=== PATIENT | male | born 1995 ===

== ENCOUNTER 2020-06-20 11:53 | Emergency (ER) | payer OTHER, SELFPAY ==
--- NOTE | ~2020-06-20 | XR_ITS ---
EXAMINATION: XR KNEE, RIGHT CLINICAL INFORMATION: Pain, trauma. COMPARISON: November 11, 2011 TECHNIQUE: Four views of the right knee. FINDINGS: There is no evidence of acute fracture or dislocation of the right knee. Right knee joint spaces are maintained. There is question of a small right knee effusion versus edematous change within the planes. Sequela of previous [place]-Schlatter's disease seen. XR/XR knee RT 4V IMPRESSION: No significant acute abnormality of the right knee.
[2020-06-20 12:00] VITALS: BP 127/80; PULSE 76; RESP 18; TEMP 36.4; O2SAT 96; BMI 28.5
--- NOTE | 2020-06-20 12:06 | ED_ITS ---
HPI - Extremity Problem General Chief complaint: Extremity Injury, Lower Stated complaint: knee injury Time Seen by Provider: 06/20/20 12:00 Source: patient and family Mode of arrival: ambulatory Limitations: no limitations History of Present Illness HPI Narrative: 25 yo male here with right knee pain s/p injury 2 days ago. Patient reports he struck his right thigh on a piece of furniture 2 days ago and since then he has had pain, and stiffness in the right knee. No Swelling, erythema, warmth, fevers, chills. Pain is not worsened with weight-bearing. He does have more pain in the morning when he wakes up and stretches and moves the extremity. No previous injury Related Data Allergies Allergy/AdvReac Type Severity Reaction Status Date / Time No Known Allergies Allergy Verified 06/20/20 12:04 [No Known Allergies*] Review of Systems Review of Systems: Yes all other systems are reviewed and are negative Constitutional: Constitutional: Reports no additional constitutional complaints, Denies body ache(s), Denies chills, Denies fever(s), Denies headache(s) and Denies weakness Eyes: Eyes: Reports no additional eye complaints and Denies change in vision ENT: Reports system reviewed and no additional complaints, except as documented, Denies dizziness, Denies headache(s), Denies nasal congestion, Denies nasal discharge and Denies neck pain Cardiovascular: Cardiovascular: Reports no additional cardiovascular complaints, Denies chest pain, Denies leg edema and Denies dyspnea Respiratory: Respiratory: Reports no additional respiratory complaints, Denies cough and Denies dyspnea Gastrointestinal: Gastrointestinal: Reports no additional gastrointestinal complaints, Denies abdominal pain, Denies diarrhea, Denies nausea and Denies vomiting Genitourinary: Genitourinary: Denies urinary incontinence Musculoskeletal: Musculoskeletal: Reports no additional musculoskeletal complaints, Denies back pain, Reports arthralgias, Denies joint swelling, Denies limited range of motion, Denies neck pain, Denies numbness and Denies tingling Integumentary/Breasts: Skin/Breast: Reports system reviewed and no additional complaints, except as docu and Denies rash Neurologic: Reports system reviewed and no additional complaints, except as documented, Denies Abnormal speech present, Denies dizziness, Denies headache(s), Denies numbness, Denies tingling and Denies weakness PMF Past Medical History Attestation statement: The following information was validated with the patient. Source: old records reviewed and nursing notes reviewed Medical History Asthma Social History Social History Advance Directives: No Advance Directives Information Provided: No Physical Exam Vital Signs: Vital Signs: Last Vital Signs Temp 97.5 F 06/20/20 12:00 Pulse 76 06/20/20 12:00 Resp 18 06/20/20 12:00 BP 127/80 06/20/20 12:00 Pulse Ox 96 06/20/20 12:00 Body Mass Index 28.5 Const: General: cooperative, healthy appearing, comfortable and no acute distress Orientation/consciousness: patient oriented x3 Limitations: no limitations HENMT: Head: Yes normal to inspection Ears: hearing grossly normal bilaterally General nose exam: Normal external nose present Face and sinus: Yes normal facial exam Mouth: Normal oral and palatal mucosa present Throat: Yes posterior oropharynx normal Eyes: General: appearance normal, both eyes and all related structures Pupils: Equal, round and reactive pupils present Neck: Neck: Yes normal visual inspection Chest: Chest palpation & inspection: normal inspection of the chest Resp: Effort & Inspection: normal respiratory effort Auscultation: clear to auscultation bilaterally Cardio: Rate: regular rate Rhythm: regular rhythm Peripheral pulses: Peripheral pulses 2+ throughout GI: Inspection: Yes normal to inspection Palpation (GI): Soft to palpation and nontender Auscultation: normal bowel sounds Back/Spine/Pelvis: Thoracic/Lumbar Spine: thoracic and lumbar spine normal to inspection Skin: General skin exam: no rashes or lesions noted Neuro: General: patient oriented x3, no focal motor deficits and normal sensation to monofilament Cranial nerves: Yes Equal, round and reactive pupils present Cognition (Neuro): normal cognition Speech: No Abnormal speech present Gait exam (Neuro): Normal gait present Motor exam (neuro): 5/5 motor strength present throughout Extrem: Other: Tenderness over the lateral knee. There is no ecchymosis, erythema, swelling. Patient has full range of motion of the joint. There is no ligamental laxity. No tenderness, swelling or ecchymosis noted over the distal thigh which is where the patient reports his initial injury. General: Yes normal to inspection Course Course Course Narrative: 25-year-old male here with right knee pain status post injury 2 days ago. Will check imaging. 1300-X-ray shows no acute bony abnormality. Likely contusion. Reviewed findings with the patient. Placed in a Altaf wrapping think crutches for ambulation. Recommended follow-up with his primary care in 5-7 days if no improvement in symptoms. Reviewed worrisome signs and symptoms of when to return to the emergency department. Comfortable discharge home. Procedures Procedure Narrative Procedure Narrative: altaf wrap right knee, crutches w/teaching MDM - Extremity (Nontraumatic) MDM Narrative Medical decision making narrative: Contusion versus strain versus sprain Imaging Data kne x-ray: Attestation: I personally reviewed and interpreted this imaging study as follows: Radiologist's impression: [address] [address]WFez ReportSigned Patient: Keny MoonMR#: [id number]: 1995Acct:[id number]/Sex: 25 / MADM Date: 06/20/20Loc: HO.EDAttending Dr: Ordering Physician: MATTEO GROVES NP Date of Service: 06/20/20 Procedure(s): XR knee RT 4V Accession Number(s): [id number] cc: MATTEO GROVES NP~ EXAMINATION: XR KNEE, RIGHT CLINICAL INFORMATION: Pain, trauma. COMPARISON: November 11, 2011 TECHNIQUE: Four views of the right knee. FINDINGS: There is no evidence of acute fracture or dislocation of the right knee. Right knee joint spaces are maintained. There is question of a small right knee effusion versus edematous change within the planes. Sequela of previous [place]-Schlatter's disease seen. XR/XR knee RT 4V IMPRESSION: No significant acute abnormality of the right knee. Discharge Plan Discharge Clinical Impression: Contusion Qualifiers: Encounter type: initial encounter Contusion area: knee Laterality: right Qualified Code(s): S80.01XA - Contusion of right knee, initial encounter Patient Disposition: Home, Self-Care Instructions: Contusion in Adults (ED) Additional Instructions: Rest, elevation Altaf wrap to the knee for comfort with limited weight-bearing Motrin or Tylenol for pain Ice 20 minutes on, 20 minutes off Follow-up with primary care doctor in 5 days if no improvement pain Referrals: Physician,Unknown [Primary Care Provider] - 2 days Interventions: ED Discharge Assessment Last Done: 06/20/20 13:10 Discharge Date/Time: 06/20/20 13:10
== END 2020-06-20 13:10 | disposition home or self-care (01) ==
PROVIDERS: Emergency Provider Emergency Medicine
DX: S80.01XA Contusion of right knee, initial encounter (principal); W22.03XA Walked into furniture, initial encounter; Y93.9 Activity, unspecified; Y92.019 Unspecified place in single-family (private) house as the place of occurrence of the external cause; Y99.9 Unspecified external cause status
CPT/HCPCS: 73564; 99283

== ENCOUNTER → 2020-07-02 11:56 | Outpatient (BNVA) | payer OTHER, SELFPAY | PROVIDERS: Visit Provider Physician Assistant | DX: S83.519A Sprain of anterior cruciate ligament of unspecified knee, initial encounter (principal) | CPT/HCPCS: 99202 ==

== ENCOUNTER → 2020-07-09 10:20 | Outpatient (BNVA) | payer OTHER, SELFPAY | PROVIDERS: Visit Provider Physician Assistant ==

== ENCOUNTER 2023-03-13 17:59 | Emergency (ER) | payer OTHER, SELFPAY ==
--- NOTE | 2023-03-13 | ECG_ITS ---
Test Reason : chest pain Blood Pressure : / mmHG Vent. Rate : 083 BPM Atrial Rate : 083 BPM P-R Int : 106 ms QRS Dur : 094 ms QT Int : 364 ms P-R-T Axes : 063 052 024 degrees QTc Int : 427 ms Sinus rhythm with short MT Otherwise normal ECG No previous ECGs available Referred By: Generic ED Physician Electronically Signed By:Agapito Berry
--- NOTE | ~2023-03-13 | XR_ITS ---
EXAMINATION: XR CHEST CLINICAL INFORMATION: Question asthma exacerbation COMPARISON: Chest radiograph from 02/18/2018 TECHNIQUE: Frontal view of the chest was obtained. FINDINGS: Slight left basilar atelectasis. No pneumothorax. Trachea is midline. Cardiac mediastinal silhouette is not enlarged. No large pleural effusion. Osseous structures are intact. Soft tissues are unremarkable. XR/XR chest 1V IMPRESSION: Slight left basilar atelectasis.
[2023-03-13 18:01] VITALS: BP 127/78; PULSE 83; RESP 18; TEMP 36.4; O2SAT 95; BMI 31.2
[2023-03-13 18:32] VITALS: BP 139/87; PULSE 86; RESP 16; O2SAT 96
--- NOTE | 2023-03-13 18:33 | ED.GENADULT ---
HPI - General Adult General Chief complaint: General Medical Stated complaint: asthma/hard time breathing Time Seen by Provider: 03/13/23 18:32 Source: patient, RN notes reviewed and old records reviewed Mode of arrival: ambulatory Limitations: no limitations History of Present Illness HPI narrative: 28-year-old male presents for evaluation of chest tightness and shortness of breath. Patient reports a history of asthma. Next he reports his symptoms started 4 days ago pain He also reports nasal congestion and ?sinus infection. ? Denies any fevers, chills. He has been using his inhalers at home without any improvement He rates his discomfort as mild, 5/10 Related Data Home Medications Medication Instructions Recorded Confirmed albuterol sulfate 2 mg tablet 2 mg PO Q8H 07/02/20 albuterol sulfate 90 mcg/actuation 1 inh inhalation Q4H 07/02/20 breath activated powder inhaler,sensor (Proair Digihaler) cholecalciferol (vitamin D3) 10 10 mcg PO DAILY 07/02/20 mcg (400 unit) capsule loratadine 10 mg capsule 10 mg PO DAILY 07/02/20 montelukast 10 mg tablet 10 mg PO DAILY 07/02/20 omeprazole 20 mg capsule,delayed 20 mg PO DAILY 07/02/20 release Previous Rx's Medication Instructions Recorded azithromycin 250 mg tablet See Rx Instructions PO .COMPLEX #6 03/13/23 tabs prednisone 20 mg tablet 40 mg (2 x 20 mg) PO DAILY #10 tabs 03/13/23 Allergies Allergy/AdvReac Type Severity Reaction Status Date / Time No Known Allergies Allergy Verified 03/13/23 18:01 [No Known Allergies*] Review of Systems Constitutional: Constitutional: Denies chills, Denies fever(s) and Reports headache(s) ENT: Reports headache(s) Cardiovascular: Cardiovascular: Denies chest pain and Reports dyspnea Respiratory: Respiratory: Reports chest congestion, Reports cough, Reports dyspnea and Reports wheezing Gastrointestinal: Gastrointestinal: Denies abdominal pain Neurologic: Reports headache(s) Allergic/Immunologic: Allergic/Immunologic: Reports wheezing PMFSH Past Medical History Medical History Asthma Social History Social History (Updated 07/02/20 @ 12:31 by Kathleen Salgado CMA) Advance Directives: No Advance Directives Information Provided: No Current occupational status: disabled Physical Exam ED Vital Signs: Vital Signs - 24 hr 03/13/23 18:01 03/13/23 18:32 Temperature 97.6 F Pulse Rate 83 86 Respiratory Rate 18 16 Blood Pressure 127/78 139/87 Pulse Oximetry 95 96 Oxygen Delivery Method Room Air Room Air BMI result Body Mass Index 31.2 Const General: healthy appearing, comfortable, no acute distress, alert and awake Nutritional Appearance: well nourished Orientation/consciousness: patient oriented x3 HENMT Head: Yes normocephalic and Yes atraumatic Throat: Yes posterior oropharynx normal Eyes Eyelids: Yes eyelids normal Conjunctivae: conjunctivae normal Sclerae: sclerae normal Corneas: corneas normal Pupils: Equal, round and reactive pupils present EOM: EOMs intact bilaterally Neck Neck: Yes full ROM Resp Other: Slightly diminished breath sounds throughout but otherwise clear to auscultation Effort & Inspection: normal respiratory effort, able to speak in complete sentences and not labored GI Inspection: No distended Palpation (GI): Soft to palpation, not firm, nontender, no guarding and not rigid Skin General skin exam: elasticity normal Neuro General: patient oriented x3 Cranial nerves: Yes Equal, round and reactive pupils present and Yes Bilaterally intact EOM present Cognition (Neuro): normal cognition Extrem Other: Moving all extremities well without any obvious deformities Medical Decision Making Medical Decision Making MDM Narrative: 28-year-old male presents for evaluation of chest tightness, shortness of breath. He has a history of asthma. He has no wheezing on exam. He also reports flu-like symptoms with sinus congestion. Will get a viral swab, chest x-ray, EKG. Patient most likely has a viral induced asthma exacerbation Differential Diagnosis Differential Diagnoses: The differential diagnosis associated with the presentation includes Asthma exacerbation Upper respiratory infection Viral syndrome Sinusitis Bronchitis Lab Data Labs: Lab Results 03/13/23 Range/Units 18:19 Influenza Type A (PCR) NEGATIVE (Negative) Influenza Type B (PCR) NEGATIVE (Negative) RSV RNA Qual (PCR) NEGATIVE (Negative) SARS-CoV-2 RNA (RT-PCR) NEGATIVE (Negative) Independent Interpretation I performed an independent interpretation of an: EKG (Sinus rhythm with short VT. No ectopy or arrhythmia) and Plain X-Ray (No infiltrates) Radiology Impression Discussion of test interpretation with radiology: I have reviewed the radiologist's reading. (Slight left basilar atelectasis) Discharge Plan Discharge Clinical Impression: Acute asthma exacerbation Patient Disposition: Home, Self-Care Instructions: Asthma (ED) Additional Instructions: Your workup in the emergency room today was reassuring. Use prednisone 40 mg daily for the next 5 days Continue to use your inhalers as prescribed You may use Motrin/Tylenol for pain Follow-up with your primary doctor Prescriptions: New azithromycin 250 mg tablet See Rx Instructions .ROUTE .COMPLEX Qty: 6 0RF Rx Instructions: For 250 mg dose pack: take 500 mg today (day 1), then 250 mg for 4 days (days 2-5) prednisone 20 mg tablet 40 mg PO DAILY Qty: 10 0RF
--- NOTE | 2023-03-13 18:33 | PC.NURSE ---
Patient brought back from waiting room, respirations even and unlabored, appears well overall no apparent distress at this time. O2 sat good
[2023-03-13 19:13] LABS: Influenza A PCR NEGATIVE (Negative); Influenza B PCR NEGATIVE (Negative); Resp Syncy Virus RNA Qual PCR NEGATIVE (Negative); SARS COV2 PCR INHOUSE NEGATIVE (Negative)
[2023-03-13 20:22] VITALS: PULSE 82; RESP 16; O2SAT 97
== END 2023-03-13 20:22 | disposition home or self-care (01) ==
PROVIDERS: Emergency Provider Emergency Medicine
DX: J45.901 Unspecified asthma with (acute) exacerbation (principal); R06.02 Shortness of breath; Z20.822 Contact with and (suspected) exposure to COVID-19; Z20.828 Contact with and (suspected) exposure to other viral communicable diseases
CPT/HCPCS: 0241U; 71045; 93005; 99283; 99284

== ENCOUNTER → 2023-03-13 18:16 | Outpatient (BNV) | payer OTHER, SELFPAY | PROVIDERS: Emergency Provider Emergency Medicine; Visit Provider Internal Medicine Cardiovascular Disease | DX: R07.9 Chest pain, unspecified (principal) | CPT/HCPCS: 93010 ==

== ENCOUNTER 2023-08-13 17:26 | Emergency (ER) | payer OTHER, SELFPAY ==
--- NOTE | ~2023-08-13 | XR_ITS ---
EXAMINATION: XR CHEST CLINICAL INFORMATION: Shortness of breath. COMPARISON: Chest x-ray dated 05/14/2022. TECHNIQUE: 2 views of the chest were obtained. FINDINGS: The cardiomediastinal silhouette is within normal limits in size. Minimal linear atelectasis in retrocardiac left lung base. No focal consolidation, effusion or pneumothorax is seen. Minimal convex left thoracolumbar scoliosis. Bony structures are otherwise unremarkable. XR/XR chest 2V IMPRESSION: Minimal linear atelectasis in retrocardiac left lung base.
--- NOTE | 2023-08-13 17:28 | ECG_ITS ---
Test Reason : CHEST TIGHTNESS Blood Pressure : / mmHG Vent. Rate : 091 BPM Atrial Rate : 091 BPM P-R Int : 108 ms QRS Dur : 096 ms QT Int : 352 ms P-R-T Axes : 069 054 026 degrees QTc Int : 432 ms Sinus rhythm with short OR Otherwise normal ECG When compared with ECG of 13-MAR-2023 18:16, No significant change was found Referred By: Generic ED Physician Electronically Signed By:KAVON FERNÁNDEZ MD
[2023-08-13 17:34] VITALS: BP 140/83; PULSE 99; RESP 20; TEMP 36; O2SAT 95; BMI 32.0
[2023-08-13 18:23] LABS: MANUAL DIFF FLAG NO
[2023-08-13 18:25] LABS: Basophils Absolute Auto 0.1 X10*3/uL (0.0-0.2); Basophils Percent Auto 0.5 % (0-2); Eosinophils Absolute Auto 0.5 X10*3/uL (0.0-0.4); Hematocrit 44.9 % (42.0-52.0); Hemoglobin 14.6 g/dl (14.0-18.0); Imm Gran Abs Auto 0.06 X10*3/uL (0.00-0.03); Imm Gran Pct Auto 0.5 % (0.0-0.4); Lymphocytes Absolute Auto 3.1 X10*3/uL (1.2-4.9); Lymphocytes Percent Auto 23.3 % (20-40); Mean Corpuscular HGB Conc 32.5 g/dl (31.0-36.0); Mean Corpuscular Hemoglobin 26.8 pg (27.0-33.0); Mean Corpuscular Volume 82.4 fL (80.0-98.0); Mean Platelet Volume 9.6 fL (9.4-12.4); Monocytes Absolute Auto 0.8 X10*3/uL (0.1-1.2); Monocytes Percent Auto 6.4 % (2-11); Neutrophils Absolute Auto 8.6 x10*3/uL (2.0-8.3); Neutrophils Percent Auto 65.3 % (45-73); Platelet Count 317 X10*3/uL (160-400); Red Blood Count 5.45 X10*6/uL (4.60-5.80); Red Cell Distribution Width 13.6 % (11.0-16.0); White Blood Count 13.2 X10*3/uL (4.8-10.8)
[2023-08-13 18:38] LABS: Alanine Aminotransferase 63 U/L (0-40); Albumin Level 4.2 g/dL (3.5-5.0); Alkaline Phosphatase 82 U/L (39-117); Anion Gap 17 (12-20); Aspartate Amino Transferase 31 U/L (5-37); Bilirubin Total 0.5 mg/dL (0.0-1.0); Blood Urea Nitrogen 14 mg/dL (9-16); Calcium 9.3 mg/dL (8.4-10.2); Carbon Dioxide 24 mmol/L (22-29); Chloride 105 mmol/L (96-108); Creatinine Clr Calc Pharmacy 130.7; Estimated Glomerular Filt Rate > 60; Glucose Random 90 mg/dL (60-115); Potassium 4.1 mmol/L (3.3-5.1); Sodium 142 mmol/L (135-145); Total Protein 7.5 g/dL (6.5-8.0)
[2023-08-13 18:48] LABS: Troponin-I High Sensitivity < 2.7 ng/L (<3.5-35.0)
[2023-08-13 18:50] LABS: Prothrombin Time 12.2 SEC (11.1-13.3)
[2023-08-13 19:05] LABS: Influenza A PCR NEGATIVE (Negative); Influenza B PCR NEGATIVE (Negative); Resp Syncy Virus RNA Qual PCR NEGATIVE (Negative); SARS COV2 PCR INHOUSE NEGATIVE (Negative)
--- NOTE | 2023-08-13 19:46 | ED.GENADULT ---
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 The patient endorses a cough productive of whitish/yellow mucus associated with chest tightness. He states he has noticed the chest tightness is worsened by exacerbation of his asthma. He otherwise denies: fever or chills, nausea/vomiting, diarrhea, syncope. Related Data Home Medications ?Medication ?Instructions ?Recorded ?Confirmed albuterol sulfate 2 mg tablet 2 mg PO Q8H 07/02/20 albuterol sulfate 90 mcg/actuation 1 inh inhalation Q4H 07/02/20 breath activated powder inhaler,sensor (Proair Digihaler) cholecalciferol (vitamin D3) 10 10 mcg PO DAILY 07/02/20 mcg (400 unit) capsule loratadine 10 mg capsule 10 mg PO DAILY 07/02/20 montelukast 10 mg tablet 10 mg PO DAILY 07/02/20 omeprazole 20 mg capsule,delayed 20 mg PO DAILY 07/02/20 release Previous Rx's ?Medication ?Instructions ?Recorded azithromycin 250 mg tablet See Rx Instructions PO .COMPLEX #6 03/13/23 tabs prednisone 20 mg tablet 40 mg (2 x 20 mg) PO DAILY #10 tabs 03/13/23 prednisone 20 mg tablet 40 mg (2 x 20 mg) PO DAILY 4 days 08/13/23 #8 tabs Allergies Allergy/AdvReac Type Severity Reaction Status Date / Time No Known Allergies Allergy Verified 08/13/23 17:36 [No Known Allergies*] Review of Systems Review of Systems: Yes all other systems are reviewed and are negative PMFSH Past Medical History Attestation statement: The following information was validated with the patient. Source: old records reviewed Medical History Asthma Social History Social History Advance Directives: No Advance Directives Information Provided: No Do you have a plan to hurt others: No Plan Current occupational status: disabled Physical Exam ED Vital Signs: Vital Signs - 24 hr 08/13/23 17:34 08/13/23 20:23 Temperature 96.8 F Pulse Rate 99 95 Respiratory Rate 20 18 Blood Pressure 140/83 H Pulse Oximetry 95 Oxygen Delivery Method Room Air BMI result Body Mass Index 32.0 Patient is afebrile, mildly tachycardic, and normotensive. Const General: cooperative HENMT Head: Yes normal to inspection Ears: TM's normal bilaterally Throat: Yes posterior oropharynx normal Eyes General: appearance normal, both eyes and all related structures Pupils: Equal, round and reactive pupils present EOM: EOMs intact bilaterally Neck Neck: Yes normal visual inspection, Yes full ROM, Yes supple and No tender Chest Chest palpation & inspection: normal inspection of the chest and normal palpation of entire chest wall Resp Effort & Inspection: normal respiratory effort, able to speak in complete sentences, no cough and no respiratory distress Auscultation: clear to auscultation bilaterally Cardio Rate: regular rate Rhythm: regular rhythm Peripheral pulses: Peripheral pulses 2+ throughout GI Inspection: Yes normal to inspection and No distended Palpation (GI): Soft to palpation, not firm, nontender, no guarding and not rigid Auscultation: normal bowel sounds Neuro Cranial nerves: Yes Equal, round and reactive pupils present Course Course Course Narrative: Patient is afebrile and mildly tachycardic. Reviewed triage work up. Added CXR. Patient requesting treatment with short course steroids - will prescribe including first dose in the ED. Patient's lung sounds are clear however he has significant cough. Will trial Albuterol inhaler 6 puffs. COVID/Flu/RSV negative. Strep negative. CXR unremarkable. Patient is ambulatory without difficulty or desaturation. Plan: Discharge to home with PCP follow up Return precautions given Medications Administered Discontinued Medications Generic Name Dose Route Start Last Admin Trade Name Freq PRN Reason Stop Dose Admin Albuterol Sulfate 6 puff 08/13/23 19:44 08/13/23 20:21 Albuterol Sulfate 90 Mcg 8 Gm Inhaler INHALE 08/13/23 19:45 6 puff ONCE ONE Administration Prednisone 40 mg 08/13/23 19:44 08/13/23 20:22 Prednisone 20 Mg Tablet PO 08/13/23 19:45 40 mg ONCE ONE Administration Medical Decision Making Lab Data 08/13/23 18:07 08/13/23 18:07 Labs: Lab Results 08/13/23 08/13/23 Range/Units 18:07 20:41 WBC 13.2 H (4.8-10.8) X10*3/uL RBC 5.45 (4.60-5.80) X10*6/uL Hgb 14.6 (14.0-18.0) g/dl Hct 44.9 (42.0-52.0) % MCV 82.4 (80.0-98.0) fL MCH 26.8 L (27.0-33.0) pg MCHC 32.5 (31.0-36.0) g/dl RDW 13.6 (11.0-16.0) % Plt Count 317 (160-400) X10*3/uL MPV 9.6 (9.4-12.4) fL Immature Gran % (Auto) 0.5 H (0.0-0.4) % Neut % (Auto) 65.3 (45-73) % Lymph % (Auto) 23.3 (20-40) % [place] % (Auto) 6.4 (2-11) % Eos % (Auto) 4.0 (0-4) % Baso % (Auto) 0.5 (0-2) % Lymph # (Auto) 3.1 (1.2-4.9) X10*3/uL [place] # (Auto) 0.8 (0.1-1.2) X10*3/uL Eos # (Auto) 0.5 H (0.0-0.4) X10*3/uL Baso # (Auto) 0.1 (0.0-0.2) X10*3/uL Abs Immat Gran (auto) 0.06 H (0.00-0.03) X10*3/uL Absolute Neuts (auto) 8.6 H (2.0-8.3) x10*3/uL Absolute Nucleated RBC 0.000 (0.0-0.012) X10*3/uL Nucleated RBC % (auto) 0.0 (0.0-0.2) /100WBC PT 12.2 (11.1-13.3) SEC INR 1.0 (0.9-1.1) Sodium 142 (135-145) mmol/L Potassium 4.1 (3.3-5.1) mmol/L Chloride 105 (96-108) mmol/L Carbon Dioxide 24 (22-29) mmol/L Anion Gap 17 (12-20) BUN 14 (9-16) mg/dL Creatinine 0.93 (0.5-1.4) mg/dL Estim Creat Clear Calc 130.7 Estimated GFR > 60 Random Glucose 90 (60-115) mg/dL Calcium 9.3 (8.4-10.2) mg/dL Total Bilirubin 0.5 (0.0-1.0) mg/dL AST 31 (5-37) U/L ALT 63 H (0-40) U/L Alkaline Phosphatase 82 (39-117) U/L Troponin I High Sens < 2.7 (<3.5-35.0) ng/L Total Protein 7.5 (6.5-8.0) g/dL Albumin 4.2 (3.5-5.0) g/dL Influenza Type A (PCR) NEGATIVE (Negative) Influenza Type B (PCR) NEGATIVE (Negative) RSV RNA Qual (PCR) NEGATIVE (Negative) SARS-CoV-2 RNA (RT-PCR) NEGATIVE (Negative) S. pyogenes GrpA MIGUE Negative (Negative) Discharge Plan Discharge Clinical Impression: Upper respiratory infection Patient Disposition: Home, Self-Care Instructions: Upper Respiratory Infection (DC) Additional Instructions: As we discussed, you were seen today for upper respiratory symptoms. Your labs and CXR were reassuring. You were treated with a steroid and a prescription for another 4 days was sent to your pharmacy - take this as prescribed. Follow up with your PCP within the next 2 - 3 days for re-evaluation. Return to the emergency department for: Difficulty breathing Chest pain Passing out Prescriptions: New prednisone 20 mg tablet 40 mg PO DAILY 4 Days Qty: 8 0RF No Action azithromycin 250 mg tablet See Rx Instructions .ROUTE .COMPLEX Qty: 6 0RF Rx Instructions: For 250 mg dose pack: take 500 mg today (day 1), then 250 mg for 4 days (days 2-5) prednisone 20 mg tablet 40 mg PO DAILY Qty: 10 0RF Print Language: [place]awian
[2023-08-13] MEDS: Albuterol Sulfate 90 MCG 8 GM INHALER 6 PUFF INHALE (20:21)
[2023-08-13] MEDS: predniSONE 20 MG TABLET 40 MG PO (20:22)
[2023-08-13 20:23] VITALS: PULSE 95; RESP 18; O2SAT 99
--- NOTE | 2023-08-13 20:24 | PC.NURSE ---
rt at bedside using inhailer with patient, pt also medicated with prednisone per order
[2023-08-13 20:59] LABS: IDNOW Serial# 6674DD1D
[2023-08-13 21:00] LABS: Strep A Nucleic Acid Negative (Negative)
[2023-08-13 21:16] VITALS: BP 123/85; PULSE 95; RESP 18; TEMP 36.8
== END 2023-08-13 21:21 | disposition home or self-care (01) ==
PROVIDERS: Physician Assistant; Emergency Provider Emergency Medicine
DX: J06.9 Acute upper respiratory infection, unspecified (principal); R05.9 Cough, unspecified; R07.89 Other chest pain; Z03.818 Encounter for observation for suspected exposure to other biological agents ruled out
CPT/HCPCS: 0241U; 36415; 71046; 80053; 84484; 85025; 85610; 87651; 93005; 94640; 99284

== ENCOUNTER → 2023-08-13 17:28 | Outpatient (BNV) | payer OTHER, SELFPAY | PROVIDERS: Emergency Provider Emergency Medicine; Visit Provider Internal Medicine Cardiovascular Disease | DX: R07.89 Other chest pain (principal) | CPT/HCPCS: 93010 ==

== ENCOUNTER 2023-09-10 15:14 | Emergency (ER) | payer OTHER, SELFPAY ==
--- NOTE | ~2023-09-10 | XR_ITS ---
EXAMINATION: XR CHEST CLINICAL INFORMATION: Shortness of breath. COMPARISON: Chest radiograph dated 08/13/2023. TECHNIQUE: 2 views of the chest were obtained. FINDINGS: The cardiac silhouette is normal in size. There is no consolidation. There is no pleural effusion or pneumothorax. No acute osseous abnormality. XR/XR chest 2V IMPRESSION: Stable appearance of the heart and lungs. No active disease.
[2023-09-10 15:29] VITALS: BP 132/74; PULSE 97; RESP 20; TEMP 36.6; O2SAT 99; BMI 32.1
--- NOTE | 2023-09-10 15:29 | ED.GENADULT ---
HPI - General Adult General Chief complaint: Asthma Stated complaint: asthma, chest tightness Time Seen by Provider: 09/10/23 16:10 Source: patient Mode of arrival: ambulatory Limitations: no limitations History of Present Illness ED Provider: Shakira Rossi PA-C HPI narrative: Patient is a 28 year old assigned male at with a history of asthma presenting to the emergency department today with persistent coughing. Patient states that over the last 10 days he has had consistent / persistent wheezing / coughing. Patient denies any dizziness, lightheadedness, abdominal pain, nausea, vomiting, fever, chills, blurry vision, double vision, loss of vision, chest pain, difficulty breathing, shortness of breath, back pain, night sweats, pain with urination, increased urinary frequency, increased urinary urgency, blood in his urine or stool, syncope or a near syncopal episode, recent trauma or falls, bowel incontinence, bladder incontinence, or any other complaints at this time. Onset (ago): day(s) (10) Severity: mild Relieving factors: none Exacerbating factors: none Associated symptoms: cough Treatments prior to arrival: none Related Data Home Medications ?Medication ?Instructions ?Recorded ?Confirmed albuterol sulfate 2 mg tablet 2 mg PO Q8H 07/02/20 albuterol sulfate 90 mcg/actuation 1 inh inhalation Q4H 07/02/20 breath activated powder inhaler,sensor (Proair Digihaler) cholecalciferol (vitamin D3) 10 10 mcg PO DAILY 07/02/20 mcg (400 unit) capsule loratadine 10 mg capsule 10 mg PO DAILY 07/02/20 montelukast 10 mg tablet 10 mg PO DAILY 07/02/20 omeprazole 20 mg capsule,delayed 20 mg PO DAILY 07/02/20 release Previous Rx's ?Medication ?Instructions ?Recorded azithromycin 250 mg tablet See Rx Instructions PO .COMPLEX #6 03/13/23 tabs prednisone 20 mg tablet 40 mg (2 x 20 mg) PO DAILY #10 tabs 03/13/23 prednisone 20 mg tablet 40 mg (2 x 20 mg) PO DAILY 4 days 08/13/23 #8 tabs albuterol sulfate 0.63 mg/3 mL 0.63 mg (3 mL) inhalation Q6H #75 09/10/23 solution for nebulization mL prednisone 20 mg tablet 20 mg PO DAILY 7 days #7 tabs 09/10/23 Allergies Allergy/AdvReac Type Severity Reaction Status Date / Time No Known Allergies Allergy Verified 09/10/23 15:34 [No Known Allergies*] Review of Systems Constitutional: Constitutional: Reports no additional constitutional complaints, Denies chills, Denies fever(s) and Denies night sweats Eyes: Eyes: Reports no additional eye complaints, Denies blurry vision, Denies change in vision, Denies diplopia, Denies eye discharge, Denies loss of vision and Denies eye pain ENT: Denies dizziness Cardiovascular: Cardiovascular: Reports no additional cardiovascular complaints, Denies chest pain, Denies lightheadedness, Denies Loss of Consciousness and Denies dyspnea Respiratory: Respiratory: Reports no additional respiratory complaints, Reports cough, Denies dyspnea and Reports wheezing Gastrointestinal: Gastrointestinal: Reports no additional gastrointestinal complaints, Denies abdominal pain, Denies melena, Denies hematochezia, Denies change in bowel habits and Denies change in stool character Genitourinary: Genitourinary: Reports no additional male genitourinary complaints, Denies hematuria, Denies oliguria, Denies difficulty urinating, Denies dysuria, Denies urinary frequency, Denies urinary hesitancy, Denies urinary incontinence and Denies urinary urgency Musculoskeletal: Musculoskeletal: Reports no additional musculoskeletal complaints, Denies numbness and Denies tingling Neurologic: Denies dizziness, Denies loss of vision, Denies numbness and Denies tingling Psychiatric: Psychiatric: Reports no additional psychiatric complaints Endocrine: Endocrine: Reports no additional endocrine complaints Hematologic/Lymphatic: Hematologic/Lymphatic: Reports no additional hematologic/lymphatic complaints Allergic/Immunologic: Allergic/Immunologic: Reports no additional allergic/immunologic complaints and Reports wheezing PMFSH Past Medical History Attestation statement: The following information was validated with the patient. Source: old records reviewed and nursing notes reviewed Medical History Asthma Social History Social History Advance Directives: No Advance Directives Information Provided: No Current occupational status: disabled Physical Exam ED Vital Signs: Vital Signs - 24 hr 09/10/23 15:29 09/10/23 16:34 09/10/23 17:47 Temperature 98 F 98.3 F Pulse Rate 97 84 84 Respiratory Rate 20 20 14 Blood Pressure 132/74 125/85 Pulse Oximetry 99 97 Oxygen Delivery Method Room Air Room Air BMI result Body Mass Index 32.1 Const General: cooperative, no acute distress, alert and awake Nutritional Appearance: well nourished Orientation/consciousness: patient oriented x3 Limitations: no limitations HENMT Head: Yes normal to inspection and Yes atraumatic Ears: hearing grossly normal bilaterally and external ears normal General nose exam: Normal external nose present, no nasal discharge noted and no epistaxis Face and sinus: Yes normal facial exam, No abrasion and No laceration Mouth: Normal oral and palatal mucosa present, no drooling and no muffled voice Eyes General: appearance normal, both eyes and all related structures Periorbital: periorbital findings normal Eyelids: Yes eyelids normal Conjunctivae: conjunctivae normal Pupils: Equal, round and reactive pupils present EOM: EOMs intact bilaterally Neck Neck: Yes normal visual inspection, Yes full ROM and Yes no lymphadenopathy Chest Chest palpation & inspection: normal inspection of the chest Resp Effort & Inspection: normal respiratory effort and able to speak in complete sentences Auscultation: wheezes throughout GI Inspection: Yes normal to inspection Neuro General: patient oriented x3 and moves all extremities Cranial nerves: Yes Equal, round and reactive pupils present Cognition (Neuro): normal cognition Motor exam (neuro): 5/5 motor strength present throughout Sensory Exam: Normal double simultaneous stimulation for sensation Coordination: [id number] test normal Extrem General: Yes normal to inspection, Yes full ROM and Yes capillary refill normal Psych Appearance: grossly normal Mental Status: mental status grossly normal Affect: normal affect Attitude: cooperative Thought process: Normal thought process present Thought content: Normal thought content present Insight: Good insight present (Psych) Course Course Course Narrative: This is an RME performed by Jonah Smith CNP: Additional HPI, ROS, PE not included below will be deferred to primary provider. Patient is a 28-year-old since 2 the emergency department for evaluation he states years receiving Tezspire injection for severe asthma, most recently on 08/31/23, since then experiencing productive cough with green and black phlegm, diffuse anterior chest tightness, shortness of breath. Reports symptoms not resolving, but also not worse. Reports minimal from albuterol inhaler. Exam: LS diminished RLL, otherwise clear, no wheezing Plan: CXR, EKG, viral panel Medications Administered Discontinued Medications Generic Name Dose Route Start Last Admin Trade Name Sami PRN Reason Stop Dose Admin Albuterol Sulfate 2.5 mg/ 5 mg 09/10/23 16:29 09/10/23 16:33 Albuterol Sulfate 2.5 mg INHALE 09/10/23 16:30 5 mg ONCE ONE Administration Magnesium Sulfate/Dextrose 1 gm in 100 mls @ 100 mls/hr 09/10/23 16:18 09/10/23 17:47 Magnesium Sulfate/D5w IV 09/10/23 17:17 Infused ONCE ONE Infusion Methylprednisolone Sodium Succinate 60 mg 09/10/23 16:18 09/10/23 17:10 Methylprednisolone Sod Succ 125 Mg/2 Ml Vial IVPUSH 09/10/23 16:19 60 mg ONCE ONE Administration Medical Decision Making Medical Decision Making [facility] Narrative: Patient is a 28 year old assigned male at with a history of asthma presenting to the emergency department today with persistent wheezing / coughing. Patient's physical exam was as noted in the physical exam portion of this note. Patient's EKG was unremarkable. Patient's chest x-ray showed no acute process. I explained my physical exam findings as well as all test results to the patient. I answered all questions asked by the patient. Patient received IV solu-medrol, magnesium, and a breathing treatment which upon re-evaluation, he stated helped his symptoms significantly. I stressed the importance of the patient taking his medication as prescribed. I stressed the importance of the patient following up with his primary care provider. I stressed the importance of the patient returning to the emergency department immediately if his symptoms were to worsen or if he were to develop any dizziness, shortness of breath, difficulty breathing, chest pain, blurry vision, loss of vision, nausea, vomiting, abdominal pain, fever, chills, back pain, or any other complaints. Patient verbalized agreement and understanding with this treatment plan and discharge. Differential Diagnosis Differential Diagnoses: The differential diagnosis associated with the presentation includes Asthma exacerbation Wheezing Cough COVID-19 Influenza RSV Admission/Observation Consideration of admission/observation: Escalation of care including admission/observation considered Patient would have been admitted to the hospital had his work up had any findings where hospital admission was appropriate and his clinical presentation warranted hospital admission. Lab Data [facility] Lab Attestation statement: I reviewed the patient's lab results. My interpretation of these studies and their corresponding values is that they are grossly normal. Labs: Lab Results 09/10/23 Range/Units 15:45 Influenza Type A (PCR) NEGATIVE (Negative) Influenza Type B (PCR) NEGATIVE (Negative) RSV RNA Qual (PCR) NEGATIVE (Negative) SARS-CoV-2 RNA (RT-PCR) NEGATIVE (Negative) Independent Interpretation I performed an independent interpretation of an: EKG and Plain X-Ray Interpretation: My interpretation is in agreement with the radiologist's impression of this imaging study. EXAMINATION: XR CHEST CLINICAL INFORMATION: Shortness of breath. COMPARISON: Chest radiograph dated 08/13/2023. TECHNIQUE: 2 views of the chest were obtained. FINDINGS: The cardiac silhouette is normal in size. There is no consolidation. There is no pleural effusion or pneumothorax. No acute osseous abnormality. XR/XR chest 2V IMPRESSION: Stable appearance of the heart and lungs. No active disease. Dictated By: Gabriel Simons Jr, DO Signed By: Electronically signed by Gabriel Simons Jr, DO 09/10/23 1553 Vent. Rate: 087 BPM Atrial Rate: 087 BPM P-R Int: 108 ms QRS Dur: 096 ms QT Int: 364 ms P-R-T Axes: 060 054 012 degrees QTc Int: 438 ms Sinus rhythm with sinus arrhythmia with short CA Otherwise normal ECG When compared with ECG of 13-AUG-2023 17:28, No significant change was found DD/ 1553 Radiology Impression Discussion of test interpretation with radiology: I have reviewed the radiologist's reading. Critical Care Time Critical Care Time Critical Care Time: Yes Total Critical Care Time: 34 Attestation: I spent 34 minutes of Critical Care Time with this patient. This does not include time spent on separately reported billable procedures. Discharge Plan Discharge Clinical Impression: Asthma Patient Disposition: Home, Self-Care Instructions: Asthma (DC) Additional Instructions: Follow up with your primary care provider. Return to the emergency department immediately if your symptoms worsen or if you develop any dizziness, shortness of breath, difficulty breathing, chest pain, blurry vision, loss of vision, nausea, vomiting, abdominal pain, fever, chills, back pain, or any other complaints. Prescriptions: New prednisone 20 mg tablet 20 mg PO DAILY 7 Days Qty: 7 0RF albuterol sulfate 0.63 mg/3 mL solution for nebulization 0.63 mg inhalation Q6H Qty: 75 0RF No Action azithromycin 250 mg tablet See Rx Instructions .ROUTE .COMPLEX Qty: 6 0RF Rx Instructions: For 250 mg dose pack: take 500 mg today (day 1), then 250 mg for 4 days (days 2-5) prednisone 20 mg tablet 40 mg PO DAILY Qty: 10 0RF prednisone 20 mg tablet 40 mg PO DAILY 4 Days Qty: 8 0RF Referrals: [facility] [Provider Group] (Call to establish and follow up with a primary care provider. If you already have a primary care provider, please follow up with them.) [facility] [Provider Group] [facility] [Provider Group] Stand Alone Forms: Work/School Release Interventions: ED Discharge Assessment Last Done: 09/10/23 17:47 Discharge Date/Time: 09/10/23 17:48 Print Language: Thai
--- NOTE | 2023-09-10 15:34 | ECG_ITS ---
Test Reason : chest tightness,SOB Blood Pressure : / mmHG Vent. Rate : 087 BPM Atrial Rate : 087 BPM P-R Int : 108 ms QRS Dur : 096 ms QT Int : 364 ms P-R-T Axes : 060 054 012 degrees QTc Int : 438 ms Sinus rhythm with sinus arrhythmia with short ID Otherwise normal ECG When compared with ECG of 13-AUG-2023 17:28, No significant change was found Referred By: Nataly Smith Electronically Signed By:KASIE OTTO
[2023-09-10 16:31] LABS: Influenza A PCR NEGATIVE (Negative); Influenza B PCR NEGATIVE (Negative); Resp Syncy Virus RNA Qual PCR NEGATIVE (Negative); SARS COV2 PCR INHOUSE NEGATIVE (Negative)
[2023-09-10] MEDS: Albuterol Sulfate 2.5 MG, Albuterol Sulfate (0.083%) 2.5 MG 5 MG INHALE (16:33)
[2023-09-10 16:34] VITALS: PULSE 84; RESP 20; O2SAT 97
[2023-09-10] MEDS: methylPREDNISolone Sod Succ 125 MG/2 ML VIAL 60 MG IVPUSH (17:10)
[2023-09-10] MEDS: Magnesium Sulfate/D5W 1 GM/100 ML PIGGYBACK IV (17:11)
[2023-09-10 17:47] VITALS: BP 125/85; PULSE 84; RESP 14; TEMP 36.8; O2SAT 97
== END 2023-09-10 17:48 | disposition home or self-care (01) ==
PROVIDERS: Nurse Practitioner Family; Emergency Provider Internal Medicine
DX: J45.909 Unspecified asthma, uncomplicated (principal); R06.02 Shortness of breath; R07.89 Other chest pain; I49.8 Other specified cardiac arrhythmias; Z79.899 Other long term (current) drug therapy; Z03.818 Encounter for observation for suspected exposure to other biological agents ruled out
CPT/HCPCS: 0241U; 71046; 93005; 94640; 96365; 96375; 99284; J2919; J3475

== ENCOUNTER → 2023-09-10 15:34 | Outpatient (BNV) | payer OTHER, SELFPAY | PROVIDERS: Emergency Provider Internal Medicine; Visit Provider Internal Medicine | DX: I49.9 Cardiac arrhythmia, unspecified (principal) | CPT/HCPCS: 93010 ==

== ENCOUNTER 2023-09-14 10:46 | Outpatient (AMB) | payer OTHER, SELFPAY ==
[2023-09-14 10:50] VITALS: BP 120/78; PULSE 68; O2SAT 96; BMI 32.3
--- NOTE | 2023-09-14 10:50 | MHC.OFFVIS ---
Vital Signs 09/14/23 10:50 Height 5 ft 7 in Weight 206 lb 2.115 oz BMI 32.3 BP 120/78 Blood Pressure Location Lt brachial Position Sitting Pulse 68 Pulse Source Pulse Oximeter Pulse Oximetry (%) 96 Oxygen Delivery Method Room Air Intake Visit Reasons: Bronchiolitis Obliterans Hogshead Head Matcher Required: No Allergies No Known Allergies [No Known Allergies*] Allergy (Verified 09/14/23 10:53) HPI Comments Details: The patient is here for pulmonary evaluation. The patient is a 28-year-old gentleman with a complicated pulmonary history. Apparently he has had significant trouble breathing since she was a baby. He is required multiple admissions initially to local hospital such as [facility] under the care of his pediatric yard switcher. Required multiple courses of prednisone. Was treated for significant asthma severe persistent in addition to COPD. 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 He has been treated and managed in [place]. He is tried multiple biologics. Most recently placed on test fire that resulted in worsening respiratory symptoms after the 2nd dose. He actually went to the ER after self injecting the test prior with worsening asthma symptoms. I do not believe he is going to continue. Prior to that he has been on Xolair and also I 0 5 inhibitors. The patient currently is on prednisone since his recent evaluation. He had chest x-ray which I personally reviewed demonstrating some hyperinflated lungs and some hazy opacities suggesting chronic airway disease. 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 Although because of the transportation issues since he was getting in [place] he had to stop the infusions. Will go ahead and request additional blood work. At this time but will wait till he completes the prednisone to make sure we have adequate readings. The patient also will benefit from continue nebulized therapy. He does have percussion vest. I provide him with percussion valve as well that he can use in conjunction to allow better mucus clearance specially with significant constrictive bronchiolitis. He is going to wean off the prednisone is going to continue with the nebulizer including albuterol and also budesonide. The patient also will benefit from Spiriva which we will consider. [facility] Medical History (Updated 09/14/23 @ 22:03 by Kleber Bourne MD) Hypogammaglobulinemia Bronchitis Constriction of bronchioles Asthma Social History (Updated 09/14/23 @ 10:56 by MERLINE Torres) Patient Tobacco Use Status: Never used Tobacco Current occupational status: disabled Review of Systems Const Denies fever(s) Eyes Reports no additional complaints ENT Reports nasal congestion Card Denies chest pain and Reports dyspnea on exertion Resp Reports chest congestion, Reports cough, Reports dyspnea on exertion and Reports wheezing GI Reports no additional complaints Musc Reports no additional complaints Skin/Breast Denies rash Neuro Reports no additional complaints Rudolph/Lymph Denies lymphadenopathy Aller/Immun Reports wheezing Physical Exam Vital Signs: Last Vital Signs Pulse 68 09/14/23 10:50 BP 120/78 09/14/23 10:50 Pulse Ox 96 09/14/23 10:50 Oxygen Delivery Method Room Air 09/14/23 10:50 BMI result Body Mass Index 32.3 Const General: comfortable HEENT Head: Yes atraumatic Neck Neck: Yes supple Chest Chest palpation & inspection: normal inspection of the chest Resp Effort & Inspection: normal respiratory effort Auscultation: rhonchi, wheezes expiratory wheezes, inspiratory wheezes and scattered wheezes and diminished lung sounds Cardio Heart sounds: S1 normal heart sound present and S2 normal heart sound present GI Palpation (GI): Soft to palpation Skin General skin exam: no rashes or lesions noted Extrem General: Yes no clubbing, cyanosis or edema Results Reviewed Results Reviewed: personally reviewed CXR with hyperinflation 07/2023 Assessment & Plan Assessment & Plan (1) Hypogammaglobulinemia: 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 Category: Medical (2) Constriction of bronchioles: Code(s): J98.09 - Other diseases of bronchus, not elsewhere classified Category: Medical (3) Asthma: Code(s): J45.909 - Unspecified asthma, uncomplicated Category: Medical Qualifiers: Asthma severity: severe Asthma persistence: persistent Asthma complication type: with acute exacerbation Qualified Code(s): J45.51 - Severe persistent asthma with (acute) exacerbation Plan continue Prednisone taper continue nebulizer 3-4 times aday CPT with aerobika and percussion vest sputum culture if able Bloodwork/allergy testing continue Symbicort consider Spiriva stop Tezspire and will discuss with pulmonary team /Children[facility] will assess for need for IVIG therapy that was effective in the past Orders: Orders Resp Allergy Profile Region I Today D80.1 - Nonfamilial hypogammaglobulinemia, J40 - Bronchitis, not specified as acute or chronic, J98.09 - Other diseases of bronchus, not elsewhere classified, R91.1 - Solitary pulmonary nodule Sputum Cult + Gram stain Today D80.1 - Nonfamilial hypogammaglobulinemia, J40 - Bronchitis, not specified as acute or chronic, J98.09 - Other diseases of bronchus, not elsewhere classified Complete Blood Count Auto Diff Today D80.1 - Nonfamilial hypogammaglobulinemia, J40 - Bronchitis, not specified as acute or chronic, J98.09 - Other diseases of bronchus, not elsewhere classified LEXUS Reflex Titer and Pattern Today D80.1 - Nonfamilial hypogammaglobulinemia, J40 - Bronchitis, not specified as acute or chronic, J98.09 - Other diseases of bronchus, not elsewhere classified Immunoglobulin G Subclasses Today D80.1 - Nonfamilial hypogammaglobulinemia, J40 - Bronchitis, not specified as acute or chronic, J98.09 - Other diseases of bronchus, not elsewhere classified Immunoglobulins,IgG IgA IgM Today D80.1 - Nonfamilial hypogammaglobulinemia, J40 - Bronchitis, not specified as acute or chronic, J98.09 - Other diseases of bronchus, not elsewhere classified Immunoglobulin E Today D80.1 - Nonfamilial hypogammaglobulinemia, J40 - Bronchitis, not specified as acute or chronic, J98.09 - Other diseases of bronchus, not elsewhere classified Venous Blood Gas Today D80.1 - Nonfamilial hypogammaglobulinemia, J40 - Bronchitis, not specified as acute or chronic, J98.09 - Other diseases of bronchus, not elsewhere classified Coding Level of Care Code New Pt Level 5 (44515) Diagnoses Hypogammaglobulinemia D80.1 Constriction of bronchioles J98.09 Severe persistent asthma with acute exacerbation J45.51 Asthma severity: severe Asthma persistence: persistent Asthma complication type: with acute exacerbation Time Spent (min) 60
== END 2023-09-14 11:19 | disposition home or self-care (01) ==
PROVIDERS: PCP Internal Medicine; Visit Provider Hospitalist
DX: D80.1 Nonfamilial hypogammaglobulinemia (principal); J98.09 Other diseases of bronchus, not elsewhere classified; J45.51 Severe persistent asthma with (acute) exacerbation
CPT/HCPCS: 99205; 99417

== ENCOUNTER → 2023-09-14 10:46 | Outpatient (BNVA) | payer OTHER, SELFPAY | PROVIDERS: PCP Internal Medicine; Visit Provider Hospitalist | DX: J45.51 Severe persistent asthma with (acute) exacerbation (principal); J98.09 Other diseases of bronchus, not elsewhere classified; D80.1 Nonfamilial hypogammaglobulinemia; Z79.52 Long term (current) use of systemic steroids; Z79.899 Other long term (current) drug therapy | CPT/HCPCS: 99202 ==

== ENCOUNTER 2024-01-07 17:28 | Emergency (ER) | payer OTHER, SELFPAY ==
--- NOTE | ~2024-01-07 | XR_ITS ---
EXAMINATION: XR CHEST CLINICAL INFORMATION: SOB, cough COMPARISON: chest xray on 09/10/23 TECHNIQUE: 2 views of the chest were obtained. FINDINGS: No significant abnormality is noted involving the heart, lungs, mediastinum, bony thorax or soft tissues. XR/XR chest 2V IMPRESSION: Unremarkable examination. Electronically signed by: Dariela Presley MD 01/07/2024 07:36 PM EDT RP
--- NOTE | 2024-01-07 17:29 | ECG_ITS ---
Test Reason : chest pain Blood Pressure : / mmHG Vent. Rate : 077 BPM Atrial Rate : 077 BPM P-R Int : 106 ms QRS Dur : 098 ms QT Int : 362 ms P-R-T Axes : 076 067 044 degrees QTc Int : 409 ms Sinus rhythm with sinus arrhythmia with short DE Otherwise normal ECG When compared with ECG of 10-SEP-2023 15:53, No significant change was found Referred By: Nataly Smith Electronically Signed By:KAVON FERNÁNDEZ MD
[2024-01-07 17:50] VITALS: BP 107/71; PULSE 86; RESP 20; TEMP 36.2; O2SAT 95; BMI 32.5
--- NOTE | 2024-01-07 18:10 | ED.GENADULT ---
HPI - General Adult General Chief complaint: Dyspnea Stated complaint: chest pain Related Data Home Medications ?Medication ?Instructions ?Recorded ?Confirmed albuterol sulfate 90 mcg/actuation 1 inh inhalation Q4H 07/02/20 breath activated powder inhaler,sensor (Proair Digihaler) cholecalciferol (vitamin D3) 10 10 mcg PO DAILY 07/02/20 mcg (400 unit) capsule loratadine 10 mg capsule 10 mg PO DAILY 07/02/20 montelukast 10 mg tablet 10 mg PO DAILY 07/02/20 omeprazole 20 mg capsule,delayed 20 mg PO DAILY 07/02/20 release budesonide-formoterol HFA 160 2 puff inhalation BID 09/14/23 mcg-4.5 mcg/actuation aerosol inhaler (Symbicort) cetirizine 10 mg tablet 10 mg PO DAILY 09/14/23 epinephrine 0.3 mg/0.3 mL IM 09/14/23 injection, auto-injector nebulizers 09/14/23 Previous Rx's ?Medication ?Instructions ?Recorded albuterol sulfate 0.63 mg/3 mL 0.63 mg (3 mL) inhalation Q6H #75 09/10/23 solution for nebulization mL prednisone 20 mg tablet 20 mg PO DAILY 7 days #7 tabs 09/10/23 Allergies Allergy/AdvReac Type Severity Reaction Status Date / Time No Known Allergies Allergy Verified 01/07/24 17:52 [No Known Allergies*] [facility] Past Medical History Medical History (Updated 01/09/24 @ 16:41 by Nataly Smith CNP) Hypogammaglobulinemia Bronchitis Constriction of bronchioles Asthma Social History Social History (Updated 09/14/23 @ 10:56 by MERLINE Torres) Patient Tobacco Use Status: Never used Tobacco Advance Directives: No Advance Directives Information Provided: No Do you have a plan to hurt others: No Plan Current occupational status: disabled Physical Exam ED Vital Signs: Vital Signs - 24 hr 01/07/24 17:50 Temperature 97.2 F Pulse Rate 86 Respiratory Rate 20 Blood Pressure 107/71 Pulse Oximetry 95 Oxygen Delivery Method Room Air BMI result Body Mass Index 32.5 Course Course Course Narrative: This is an RME performed by Jonah Smith CNP: Additional HPI, ROS, PE not included below will be deferred to primary provider. Patient is a 28-year-old male presents emergency department for evaluation of shortness of breath cough and chest pain over the past 2 days, pain exacerbates with cough. Plan: ECG, viral testing, CXR Medical Decision Making Lab Data Labs: Lab Results 01/07/24 Range/Units 18:16 Influenza Type A (PCR) NEGATIVE (Negative) Influenza Type B (PCR) NEGATIVE (Negative) RSV RNA Qual (PCR) NEGATIVE (Negative) SARS-CoV-2 RNA (RT-PCR) NEGATIVE (Negative) Discharge Plan Discharge Clinical Impression: Shortness of breath Patient Disposition: Left W/O Completing Treatment Prescriptions: No Action prednisone 20 mg tablet 20 mg PO DAILY 7 Days Qty: 7 0RF albuterol sulfate 0.63 mg/3 mL solution for nebulization 0.63 mg inhalation Q6H Qty: 75 0RF Proair Digihaler 90 mcg/actuation aero powdr breath act w/sensor 1 inh inhalation Q4H montelukast 10 mg tablet 10 mg PO DAILY cholecalciferol (vitamin D3) 10 mcg (400 unit) capsule 10 mcg PO DAILY loratadine 10 mg capsule 10 mg PO DAILY omeprazole 20 mg capsule,delayed release(DR/EC) 20 mg PO DAILY budesonide-formoterol [Symbicort] 160-4.5 mcg/actuation HFA aerosol inhaler 2 puff inhalation BID cetirizine 10 mg tablet 10 mg PO DAILY epinephrine 0.3 mg/0.3 mL auto-injector IM (DME) nebulizers Misc See Rx Instructions .ROUTE Rx Instructions: As directed Discharge Date/Time: 01/07/24 20:07
[2024-01-07 19:02] LABS: Influenza A PCR NEGATIVE (Negative); Influenza B PCR NEGATIVE (Negative); Resp Syncy Virus RNA Qual PCR NEGATIVE (Negative); SARS COV2 PCR INHOUSE NEGATIVE (Negative)
== END 2024-01-07 20:07 | disposition left against medical advice (07) ==
LOC: HO.ED 20:03
PROVIDERS: Nurse Practitioner Family; Emergency Provider Emergency Medicine
DX: R06.02 Shortness of breath (principal); R07.9 Chest pain, unspecified; R06.00 Dyspnea, unspecified; Z79.899 Other long term (current) drug therapy; Z03.818 Encounter for observation for suspected exposure to other biological agents ruled out; J45.909 Unspecified asthma, uncomplicated
CPT/HCPCS: 0241U; 71046; 93005; 99283

== ENCOUNTER → 2024-01-07 17:29 | Outpatient (BNV) | payer OTHER, SELFPAY | PROVIDERS: Emergency Provider Emergency Medicine; Visit Provider Internal Medicine Cardiovascular Disease | DX: R07.9 Chest pain, unspecified (principal) | CPT/HCPCS: 93010 ==

== ENCOUNTER 2024-01-28 14:33 | Outpatient (REF) | payer OTHER, SELFPAY ==
[2024-01-28 15:25] LABS: MANUAL DIFF FLAG NO
[2024-01-28 15:30] LABS: Basophils Percent Auto 0.3 % (0-2); Eosinophils Absolute Auto 0.2 X10*3/uL (0.0-0.4); Eosinophils Percent Auto 1.8 % (0-4); Hematocrit 47.6 % (42.0-52.0); Hemoglobin 15.4 g/dl (14.0-18.0); Imm Gran Abs Auto 0.07 X10*3/uL (0.00-0.03); Imm Gran Pct Auto 0.7 % (0.0-0.4); Lymphocytes Absolute Auto 2.9 X10*3/uL (1.2-4.9); Lymphocytes Percent Auto 29.9 % (20-40); Mean Corpuscular HGB Conc 32.4 g/dl (31.0-36.0); Mean Corpuscular Hemoglobin 26.5 pg (27.0-33.0); Mean Corpuscular Volume 81.8 fL (80.0-98.0); Mean Platelet Volume 9.5 fL (9.4-12.4); Monocytes Absolute Auto 0.7 X10*3/uL (0.1-1.2); Monocytes Percent Auto 6.7 % (2-11); Neutrophils Percent Auto 60.6 % (45-73); Platelet Count 313 X10*3/uL (160-400); Red Blood Count 5.82 X10*6/uL (4.60-5.80); Red Cell Distribution Width 13.7 % (11.0-16.0); White Blood Count 9.8 X10*3/uL (4.8-10.8)
[2024-01-28 16:05] LABS: Venous Blood Gas Refer to POC result
[2024-01-30 13:49] LABS: VBG pCO2 45 mmHg
[2024-01-30 13:50] LABS: VBG Base Excess 2.8 mmol/L; VBG HCO3 28 mmol/L (22-26); VBG pO2 49 mmHg
[2024-01-31 06:28] LABS: IgA 299 mg/dL (47-310); IgG 1460 mg/dL (600-1640); IgM 82 mg/dL (50-300)
[2024-01-31 15:34] LABS: Immunoglobulin G Subclass 1 709 mg/dL (382-929); Immunoglobulin G Subclass 2 456 mg/dL (241-700); Immunoglobulin G Subclass 3 39 mg/dL (22-178); Immunoglobulin G Subclass 4 79.9 mg/dL (4-86); Immunoglobulin G Total 1376 mg/dL (600-1640)
[2024-02-02 10:43] LABS: Anti Nuclear Antibody Screen NEGATIVE (NEGATIVE)
[2024-02-02 11:33] LABS: Immunoglobulin E 435 (H)
[2024-02-02 11:37] LABS: Class Cat Dander 3; Class Derm. pterony 4; Class Dermatophagoides farinae 4; D001 IgE D pteronyssinus 18.70 (H); D002 - IgE D farinae 31.10 (H); E001 - IgE Cat Dander 8.82 (H); E005 - IgE Dog Dander 29.20 (H)
[2024-02-02 11:50] LABS: Class Dog Dander 4
[2024-02-02 11:52] LABS: Class Oak 1; T007 - IgE Oak, White 0.60 (H)
[2024-02-02 11:53] LABS: Class Alternaria alternata 0; Class Aspergillus fumigatus 0; Class Birch 2; Class Cladosporium herbarum 0; Class Cockroach 0; Class Cottonwood 0; Class Mountain Cedar 0; Class Mouse Urine Protein 0; Class Sycamore 0; Class Timothy Grass 0; Class Walnut Tree 0; E072-IgE Mouse Urine <0.10; G006 - IgE Timothy Grass <0.10; I006-IgE Cockroach, German <0.10; M002 - IgE Cladosporium herbar <0.10; M003 - IgE Aspergillus fumigat <0.10; M006 - IgE Alternaria alternat <0.10; T003 IgE Common Silver Birch 3.03 (H); T006 - IgE Cedar, Mountain <0.10; T010 - IgE Walnut <0.10; T011 - IgE Maple Leaf Sycamore <0.10; T014 - IgE Cottonwood <0.10
[2024-02-02 11:54] LABS: Class Bermuda Grass 0; Class Common Ragweed 0; Class Elm 0; Class Maple Box Elder 0; Class Mugwort 0; Class Penicillium crysogenum 0; Class Rough Pigweed 0; Class Sheep Sorrel 0; Class White Ash 0; Class White Mulberry 0; G002 IgE Bermuda Grass <0.10; M001 IgE Penicillium chrysogen <0.10; T001 IgE Maple/Box Elder <0.10; T008 IgE Elm, American <0.10; T015 - IgE Ash, White <0.10; T070 - IgE White Mulberry <0.10; W001 - IgE Ragweed, Short <0.10; W006 - IgE Mugwort <0.10; W014 IgE Pigweed, Common <0.10; W018 IgE Sheep Sorrel <0.10
== END 2024-01-28 14:34 | disposition home or self-care (01) ==
LOC: HO.LAB 14:33
PROVIDERS: PCP Internal Medicine; Visit Provider Hospitalist
DX: J98.09 Other diseases of bronchus, not elsewhere classified (principal); J40 Bronchitis, not specified as acute or chronic; D80.1 Nonfamilial hypogammaglobulinemia; R91.1 Solitary pulmonary nodule; J45.51 Severe persistent asthma with (acute) exacerbation; Z79.899 Other long term (current) drug therapy
CPT/HCPCS: 36415; 82784; 82785; 82803; 85025; 86003; 86038; 99212

== ENCOUNTER 2024-01-28 14:33 | Outpatient (AMB) | payer OTHER, SELFPAY ==
[2024-01-28 14:37] VITALS: BP 118/80; PULSE 87; O2SAT 95; BMI 32.1
--- NOTE | 2024-01-28 14:37 | A.OFFVIS_ITS ---
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 Apparently he has had significant trouble breathing since she was a baby. He is required multiple admissions initially to local hospital such as [facility] under the care of his pediatric caddy packer. Required multiple courses of prednisone. Was treated for significant asthma severe persistent in addition to COPD. 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 He has been treated and managed in [place]. He is tried multiple biologics. Most recently placed on test fire that resulted in worsening respiratory symptoms after the 2nd dose. He actually went to the ER after self injecting the test prior with worsening asthma symptoms. I do not believe he is going to continue. Prior to that he has been on Xolair and also I 0 5 inhibitors. The patient currently is on prednisone since his recent evaluation. He had chest x-ray which I personally reviewed demonstrating some hyperinflated lungs and some hazy opacities suggesting chronic airway disease. 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 Although because of the transportation issues since he was getting in [place] he had to stop the infusions. Will go a head and request additional blood work. At this time but will wait till he completes the prednisone to make sure we have adequate readings. The patient also will benefit from continue nebulized therapy. He does have percussion vest. I provide him with percussion valve as well that he can use in conjunction to allow better mucus clearance specially with significant constrictive bronchiolitis. He is going to wean off the prednisone is going to continue with the nebulizer including albuterol and also budesonide. The patient also will benefit from Spiriva which we will consider. 01/28/2024 the patient is here for pulmonary follow-up visit. He is still having issues with significant asthma symptoms. He was supposed to follow-up [facility]. But, his car broke down on his way there. Therefore he was not able to make it. The patient also hurt his leg and was not able to get the blood work that we have requested. He has been having worsening wheezing chest tightness. He continues on the Fasenra injection. Will go ahead and request additional blood work including his IgE levels to see if he has any deficiencies that need to be treated. In the meantime he is having significant wheezing and also some prednisone to take. Patient understands the prednisone does come with significant adverse effects. I do believe that using a steroid sparing agent be helpful. Therefore he is willing to try Daliresp at this time. The patient does have significant chronic bronchitis in COPD therefore Daliresp will help decrease the number of exacerbations and also help him with decreasing the need for prednisone. He is going to undergo additional blood work as well. Will consider other biologics for him as well. Apparently he is also medically optimize in his respiratory therapy she will continue at this time. [facility] Medical History (Updated 01/28/24 @ 14:58 by Kleber Bourne MD) Asthma-COPD overlap syndrome Hypogammaglobulinemia Bronchitis Constriction of bronchioles Asthma Social History Patient Tobacco Use Status: Never used Tobacco Current occupational status: disabled Review of Systems Const Denies fever(s) Eyes Reports no additional complaints ENT Reports nasal congestion Card Denies chest pain and Reports dyspnea on exertion Resp Reports chest congestion, Reports cough, Reports dyspnea on exertion and Reports wheezing GI Reports no additional complaints Musc Reports no additional complaints Skin/Breast Denies rash Neuro Reports no additional complaints Rudolph/Lymph Denies lymphadenopathy Aller/Immun Reports wheezing Physical Exam Vital Signs: Last Vital Signs Pulse 87 01/28/24 14:37 BP 118/80 01/28/24 14:37 Pulse Ox 95 01/28/24 14:37 Oxygen Delivery Method Room Air 01/28/24 14:37 BMI result Body Mass Index 32.1 Const General: comfortable HEENT Head: Yes atraumatic Neck Neck: Yes supple Chest Chest palpation & inspection: normal inspection of the chest Resp Effort & Inspection: normal respiratory effort Auscultation: rhonchi, wheezes expiratory wheezes, inspiratory wheezes and scattered wheezes and diminished lung sounds Cardio Heart sounds: S1 normal heart sound present and S2 normal heart sound present GI Palpation (GI): Soft to palpation Skin General skin exam: no rashes or lesions noted Extrem General: Yes no clubbing, cyanosis or edema Assessment & Plan Assessment & Plan (1) Hypogammaglobulinemia: 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 Category: Medical (2) Constriction of bronchioles: Code(s): J98.09 - Other diseases of bronchus, not elsewhere classified Category: Medical (3) Asthma: Code(s): J45.909 - Unspecified asthma, uncomplicated Category: Medical Qualifiers: Asthma complication type: with acute exacerbation Asthma persistence: persistent Asthma severity: severe Qualified Code(s): J45.51 - Severe persistent asthma with (acute) exacerbation Plan continue Prednisone taper continue nebulizer 3-4 times aday CPT with aerobika and percussion vest sputum culture if able Bloodwork/allergy testing stop Symbicort start Dulera continue Spiriva conitnue Fasenra start Daliresp stopped Tezspire and will discuss with pulmonary team /[facility] will assess for need for IVIG therapy that was effective in the past Medications: New mometasone-formoterol 200-5 mcg/actuation (Dulera) 2 puffs inhalation Q12H 13 grams 11RF 30 days albuterol sulfate 90 mcg/actuation 2 inhalations inhalation Q4H PRN 18 grams 12RF shortness of breath or wheezing 15 days J44.9 - Chronic obstructive pulmonary disease, unspecified roflumilast (Daliresp) 500 mcg PO DAILY 30 tabs 11RF J44.89 - Other specified chronic obstructive pulmonary disease prednisone PO daily; Take 6 tabs daily x 3 days, then 5 tabs x 3 days, then 4 tabs x 3 days, then 3 tabs x 3 days, then 2 tabs daily x 3 days, then 1 tab x 3 days to complete. 63 tabs 0RF 18 days Coding Level of Care Code Est Pt Level 4 (91346) Complex EM visit Add On G2211 Diagnoses Hypogammaglobulinemia D80.1 Constriction of bronchioles J98.09 Severe persistent asthma with acute exacerbation J45.51 Asthma complication type: with acute exacerbation Asthma persistence: persistent Asthma severity: severe Time Spent (min) 17
== END 2024-01-28 15:04 | disposition home or self-care (01) ==
LOC: HO.HPS 14:34
PROVIDERS: PCP Internal Medicine; Visit Provider Hospitalist
DX: D80.1 Nonfamilial hypogammaglobulinemia (principal); J98.09 Other diseases of bronchus, not elsewhere classified; J45.51 Severe persistent asthma with (acute) exacerbation
CPT/HCPCS: 99214; G2211

== ENCOUNTER 2024-05-23 11:00 | Outpatient (AMB) | payer OTHER, SELFPAY ==
[2024-05-23 11:07] VITALS: BP 126/78; PULSE 81; O2SAT 96; BMI 32.8
--- NOTE | 2024-05-23 11:07 | MHC.OFFVIS ---
Vital Signs 05/23/24 11:07 Height 5 ft 7 in Weight 209 lb 7.026 oz BMI 32.8 BP 126/78 Blood Pressure Location Rt brachial Position Sitting Pulse 81 Pulse Source Pulse Oximeter Pulse Oximetry (%) 96 Oxygen Delivery Method Room Air Intake Visit Reasons: Bronchiolitis Obliterans Allergies No Known Allergies [No Known Allergies*] Allergy (Verified 05/23/24 11:09) HPI Comments Details: The patient is a 29-year-old gentleman with a complicated pulmonary history. Apparently he has had significant trouble breathing since she was a baby. 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 Required multiple courses of prednisone. Was treated for significant asthma severe persistent in addition to COPD. 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 He has been treated and managed in [place]. He is tried multiple biologics. Most recently placed on test fire that resulted in worsening respiratory symptoms after the 2nd dose. He actually went to the ER after self injecting the test prior with worsening asthma symptoms. I do not believe he is going to continue. Prior to that he has been on Xolair and also I 0 5 inhibitors. The patient currently is on prednisone since his recent evaluation. He had chest x-ray which I personally reviewed demonstrating some hyperinflated lungs and some hazy opacities suggesting chronic airway disease. 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 Although because of the transportation issues since he was getting in [place] he had to stop the infusions. Will go ahead and request additional blood work. At this time but will wait till he completes the prednisone to make sure we have adequate readings. The patient also will benefit from continue nebulized therapy. He does have percussion vest. I provide him with percussion valve as well that he can use in conjunction to allow better mucus clearance specially with significant constrictive bronchiolitis. He is going to wean off the prednisone is going to continue with the nebulizer including albuterol and also budesonide. The patient also will benefit from Spiriva which we will consider. 01/28/2024 the patient is here for pulmonary follow-up visit. He is still having issues with significant asthma symptoms. He was supposed to follow-up [place] [facility] But, his car broke down on his way there. Therefore he was not able to make it. The patient also hurt his leg and was not able to get the blood work that we have requested. He has been having worsening wheezing chest tightness. He continues on the Fasenra injection. Will go ahead and request additional blood work including his IgE levels to see if he has any deficiencies that need to be treated. In the meantime he is having significant wheezing and also some prednisone to take. Patient understands the prednisone does come with significant adverse effects. I do believe that using a steroid sparing agent be helpful. Therefore he is willing to try Daliresp at this time. The patient does have significant chronic bronchitis in COPD therefore Daliresp will help decrease the number of exacerbations and also help him with decreasing the need for prednisone. He is going to undergo additional blood work as well. Will consider other biologics for him as well. Apparently he is also medically optimize in his respiratory therapy she will continue at this time. 05/23/2024 the patient is here for pulmonary follow-up visit. He has been struggling with asthma. Has had significant tightness of the chest and wheezing. He has been taking some prednisone although he ran out. In the meantime he did tolerate the Daliresp. Sometimes he gets a headache so does not take it all the time which is okay. He also has been using his nebulizer frequently. He also been using the Dulera and the Spiriva. We did review his allergy testing. Does have significant allergies to dust mites in addition to cats and dogs. The patient has been on the Fasenra injections but he understands that he does not cover all the allergies specially does not cover the elevated IgE that he has. Also the blood work demonstrated that his IgG was within normal limits which is reassuring. Will go ahead and also add Dymista for his nasal allergies and congestion. He should also continue with his Zyrtec and also will give him some prednisone for him to take. The patient should also add budesonide to his nebulizer regimen to help him minimize the need for prednisone. [facility] Medical History (Updated 05/23/24 @ 19:46 by Kleber Bourne MD) Asthma-COPD overlap syndrome Hypogammaglobulinemia Bronchitis Constriction of bronchioles Asthma Social History Patient Tobacco Use Status: Never used Tobacco Current occupational status: disabled Review of Systems Const Denies fever(s) Eyes Reports no additional complaints ENT Reports nasal congestion Card Denies chest pain and Reports dyspnea on exertion Resp Reports chest congestion, Reports cough, Reports dyspnea on exertion and Reports wheezing GI Reports no additional complaints Musc Reports no additional complaints Skin/Breast Denies rash Neuro Reports no additional complaints Rudolph/Lymph Denies lymphadenopathy Aller/Immun Reports wheezing Physical Exam Vital Signs: Last Vital Signs Pulse 81 05/23/24 11:07 BP 126/78 05/23/24 11:07 Pulse Ox 96 05/23/24 11:07 Oxygen Delivery Method Room Air 05/23/24 11:07 BMI result Body Mass Index 32.8 Const General: comfortable HEENT Head: Yes atraumatic Neck Neck: Yes supple Chest Chest palpation & inspection: normal inspection of the chest Resp Effort & Inspection: normal respiratory effort Auscultation: wheezes expiratory wheezes, inspiratory wheezes and scattered wheezes and diminished lung sounds Cardio Heart sounds: S1 normal heart sound present and S2 normal heart sound present GI Palpation (GI): Soft to palpation Skin General skin exam: no rashes or lesions noted Extrem General: Yes no clubbing, cyanosis or edema Assessment & Plan Assessment & Plan (1) Constriction of bronchioles: Code(s): J98.09 - Other diseases of bronchus, not elsewhere classified Category: Medical (2) Asthma: Code(s): J45.909 - Unspecified asthma, uncomplicated Category: Medical Qualifiers: Asthma complication type: with acute exacerbation Asthma persistence: persistent Asthma severity: severe Qualified Code(s): J45.51 - Severe persistent asthma with (acute) exacerbation (3) Hypogammaglobulinemia: Comment: resolved 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 Category: Medical Plan Prednisone taper continue nebulizer 3-4 times aday CPT with aerobika and percussion vest sputum culture if able Add budesonide neb BID Add Dymista continue Dulera continue Spiriva conitnue Fasenra continue Daliresp F/U 3-4 months Medications: New prednisone 20 mg (2 x 10 mg) PO DAILY 60 tabs 2RF 30 days budesonide 0.5 mg (2 mL) inhalation BID 120 mL 11RF 30 days J44.9 - Chronic obstructive pulmonary disease, unspecified azelastine-fluticasone 137-50 mcg/spray (Dymista) administer into each nostril 1 spray intranasal BID 23 grams 11RF 30 days Coding Level of Care Code Est Pt Level 4 (80076) Complex EM visit Add On G2211 Diagnoses Constriction of bronchioles J98.09 Severe persistent asthma with acute exacerbation J45.51 Asthma complication type: with acute exacerbation Asthma persistence: persistent Asthma severity: severe Hypogammaglobulinemia D80.1 Time Spent (min) 17
--- OUTSIDE RECORDS SUMMARY | 2024-05-23 13:21 | XMS_ITS | Clinical Summary ---
Author Organization [facility] Address [address] [place] [address] Phone Care Team Providers Care Role Player Name Role Phone Jignesh Hale MD Primary Care Provider Allergies Active Allergy Reactions Criticality Noted Date Comments Cat Dander 03/19/2023 Horse Dander 03/19/2023 Pollen Extracts 03/19/2023 Medications montelukast (SINGULAIR) 10 mg tablet Take 1 tablet (10 mg total) by mouth daily. 12/28/2022 Active Dulera 200-5 mcg/actuation inhaler 01/31/2024 Active ipratropium-albu teroL (DUONEB) 0.5-2.5 mg/3 mL nebulizer solution Inhale 3 mL by mouth. Active ibuprofen (ADVIL,MOTRIN) 600 mg tablet Take 1 tablet (600 mg total) by mouth every 6 (six) hours if needed. for pain 09/22/2023 Active fluticasone-umec lidinium-vilante rol (Trelegy Ellipta) 100-62.5-25 mcg inhaler Inhale 1 puff (100 mcg total) by mouth. 06/16/2023 Active EPINEPHrine (EPIPEN) 0.3 mg/0.3 mL injection Inject 0.3 mL (0.3 mg total) as directed. 01/10/2024 Active diclofenac (VOLTAREN) 75 mg EC tablet Take 1 tablet (75 mg total) by mouth. 10/15/2023 Active Fasenra 30 mg/mL syringe Take 1 mL (30 mg total) by mouth. 02/02/2023 Active albuterol HFA (PROAIR HFA ; PROVENTIL HFA ; VENTOLIN HFA) 90 mcg/actuation inhaler Inhale 2 puffs by mouth. Active Active Problems Problem Noted Date Diagnosed Date Chest pain 03/19/2023 Mixed hyperlipidemia 03/19/2023 Seasonal allergies 03/19/2023 Respiratory distress syndrome in 023 Overview (02/11/2024): Added by [facility] Obesity (BMI 30-39.9) 03/19/2023 Shortened MD interval 03/19/2023 Overweight (BMI 25.0-29.9) 07/20/2018 Vitamin D insufficiency 07/20/2018 Allergic rhinitis 06/29/2018 Overview (02/11/2024): Dr. Danny Molina-[facility]; local Dr. Zamora-[place] Bronchiolitis obliterans 06/29/2018 Overview (02/11/2024): Followed by [facility], Drs. Burton & Thaddeus; 09/2016 S/p lung biopsy -Bronchiolitis obliterans Esophagitis 06/29/2018 Overview (02/11/2024): Follows with GI Added by [facility] Added by [facility] Iatrogenic adrenal insufficiency 06/29/2018 Strabismus 06/29/2018 Severe persistent asthma 06/29/2018 Overview (02/11/2024): 08/2017 [facility]- Dr. Wells; local-Dr. Suarez; no intubation Added by [facility] Immunizations Name Administration Dates Next Due DTaP (Infanrix) 6wks to less than 7yo ,12/03/1998,1997,1997,1997 [id number] (Pentacel) 2mo to less than 5yo 05/27/1998,1997,1997,1997 HPV, Unspecified 08/25/2012,04/13/2012, 2 Hep A, Unspecified 03/18/2015,04/18/2014,12/17/2 014 Hepatitis B Pediatric (Enger ix B; Recombivax HB) to less than 20 yo 1997,1997 IPV Inactivated polio (Ipol) 6wks and older 03/06/2002,12/03/1998,1997,1997,1997 Influenza, Unspecified 12/07/2019,2018,12/22/2017,2016,12/04/2015,01/06/2015 MMR, measles mumps and rubel la Live (Priorix; M-M-R II) 12mo and older 03/06/2002,03/07/1998 Meningococcal, Unspecified 03/18/2015,01/21/2009 Pneumococcal Conjugate Vacci ne, 7 Valent 02/26/2000 Td, Unspecified 08/31/2017,04/30/2016 Tdap Tetanus diptheria acell ular pertussis (Boostrix; Adacel) 7yo and older 01/21/2009 Varicella live (Varivax) 12m o and older 01/21/2009,02/25/2000 Surgical History Surgery Date Site/Laterality Comments OTHER SURGICAL HISTORY 2000 PROCEDURE: HISTORY OTHER; COMMENT: fundoplication EYE SURGERY 2005 Left PROCEDURE: HISTORICAL EYE SURGERY; COMMENT: for esotropia Medical History Medical History Date Comments Allergic rhinitis 06/29/2018 DX:Allergic rh initis; COMMENT: Dr. Danny Molina-[facility]; local Dr. Zamora-[place] GERD (gastroesophageal reflu x disease) 06/29/2018 DX:GERD (gastroesophageal re flux disease) Asthma, severe 06/29/2018 DX:Asthma, sever e; COMMENT: 08/2017 [facility]- Dr. Wells; local-Dr. Suarez; no intubation Bronchiolitis obliterans (CMS/HCC) 06/29/2018 DX:Bronchiolitis obliterans (HCC); COMMENT: Followed by [facility], Drs. Burton & Thaddeus; 09/2016 S/p lung biopsy -Bronchiolitis obliterans Iatrogenic adrenal insuffici ency (CMS/HCC) 06/29/2018 DX:Iatrogenic adrenal insuff iciency (HCC) Strabismus 06/29/2018 DX:Strabismus Vitamin D insufficiency 07/20/2018 DX:Vitam in D insufficiency Overweight (BMI 25.0-29.9) 07/20/2018 DX:Ov erweight (BMI 25.0-29.9) Family History Medical History Relation Name Comments No Known Problems Brother Asthma Father Other: DVT Mother PE Blindness Neg Hx Glaucoma Neg Hx Macular degeneration Neg Hx Strabismus Neg Hx Relation Name Status Comments Brother Alive Father Alive Mother Alive Social History Tobacco Use Types Packs/Day Years Used Date Smoking Tobacco: Never Smokeless Tobacco: Never Alcohol Use Standard Drinks/Week Comments No 0 (1 standard drink = 0.6 oz pur e alcohol) Sex and Gender Information Value Date Recorded Sex Assigned at Not on file Legal Sex Male 5:19 AM EST Gender Identity Not on file Sexual Orientation Not on file Obstetrics History Last Filed Vital Signs Vital Sign Reading Time Taken Comments Blood Pressure 118/64 09/22/2023 9:51 AM EDT Pulse 81 09/22/2023 9:51 AM EDT Temperature - - Respiratory Rate - - Oxygen Saturation - - Inhaled Oxygen Concentration - - Weight 91.3 kg (201 lb 3.2 oz) 10/15/2023 10:51 AM EDT Height 170.2 cm (5' 7 ) 10/15/2023 10:51 AM EDT Body Mass Index 31.51 10/15/2023 10:51 AM EDT Plan of Treatment Health Maintenance Due Date Last Done Comments Hepatitis B Vaccines (3 of 3 - 3-dose series) 1997 1997, 1997 Pneumococcal Vaccine: Pediatrics (0 to 5 Years) and At-Risk Patients (6 to 64 Years) (2 of 2 - PPSV23) 2003 02/26/2000 Depression Screening 03/01/2022 HIV Screening 03/01/2022 Hepatitis C Screening 03/01/2022 Social Influencers of Health Screening 03/01/2022 COVID-19 Vaccine ( season) 2023 Influenza Vaccine (#1) 2023 0, 01/01/2019, 12/22/2017, Additional history exists Cholesterol Screening (Lipid Panel) 12/28/2023 12/27/2018 DTaP,Tdap,and Td Vaccines (9 - Td or Tdap) 09/01/2027 08/31/2017, 04/30/2016, 01/21/2009, Additional history exists HIB Vaccines Completed 05/27/1998, 08/28, 1997, Additional history exists IPV Vaccines Completed 03/06/2002, 09/1998, 05/27/1998, Additional history exists MMR Vaccines Completed 03/06/2002, 03/07/1998 Varicella Vaccines Completed 01/21/2009, 02/25/2000 HPV Vaccines Completed 08/25/2012, 03/29, 02/09/2012 Hepatitis A Vaccines Completed 03/18/2015, 04/18/2014, 03/14/2014 Meningococcal ACWY Vaccine Completed 03/18/2015, Meningococcal B Vacine Aged Out No lo nger eligible based on patient's age to complete this topic RSV Immunization Patients Under 20 months Aged Out No longer eligible based on patient's age to complete this topic Insurance [facility] [employer] Care Teams Role Player Relationship Specialty Start Date End Date Jignesh Hale MD [address] [place] [id number] PCP - General 10/23/22
== END 2024-05-23 11:44 | disposition home or self-care (01) ==
PROVIDERS: PCP Internal Medicine; Visit Provider Hospitalist
DX: J98.09 Other diseases of bronchus, not elsewhere classified (principal); J45.51 Severe persistent asthma with (acute) exacerbation; D80.1 Nonfamilial hypogammaglobulinemia
CPT/HCPCS: 99214; G2211

== ENCOUNTER → 2024-05-23 11:00 | Outpatient (BNVA) | payer OTHER, SELFPAY | PROVIDERS: PCP Internal Medicine; Visit Provider Hospitalist | DX: J44.89 Other specified chronic obstructive pulmonary disease (principal); J98.09 Other diseases of bronchus, not elsewhere classified; J45.51 Severe persistent asthma with (acute) exacerbation; D80.1 Nonfamilial hypogammaglobulinemia | CPT/HCPCS: 99212 ==

== ENCOUNTER 2024-08-23 11:31 | Outpatient (REF) | payer OTHER, SELFPAY ==
[2024-08-23 12:32] LABS: MANUAL DIFF FLAG NO
[2024-08-23 13:48] LABS: Basophils Percent Auto 0.1 % (0-2); Hematocrit 48.1 % (42.0-52.0); Hemoglobin 15.2 g/dl (14.0-18.0); Imm Gran Abs Auto 0.02 X10*3/uL (0.00-0.03); Imm Gran Pct Auto 0.3 % (0.0-0.4); Lymphocytes Absolute Auto 2.5 X10*3/uL (1.2-4.9); Lymphocytes Percent Auto 33.7 % (20-40); Mean Corpuscular HGB Conc 31.6 g/dl (31.0-36.0); Mean Corpuscular Hemoglobin 25.9 pg (27.0-33.0); Mean Corpuscular Volume 81.9 fL (80.0-98.0); Mean Platelet Volume 10.2 fL (9.4-12.4); Monocytes Absolute Auto 0.6 X10*3/uL (0.1-1.2); Monocytes Percent Auto 7.8 % (2-11); Neutrophils Absolute Auto 4.3 x10*3/uL (2.0-8.3); Neutrophils Percent Auto 58.1 % (45-73); Platelet Count 296 X10*3/uL (160-400); Red Blood Count 5.87 X10*6/uL (4.60-5.80); Red Cell Distribution Width 13.4 % (11.0-16.0); White Blood Count 7.3 X10*3/uL (4.8-10.8)
[2024-08-23 14:22] LABS: Anion Gap 12 (12-20); Blood Urea Nitrogen 13 mg/dL (9-16); Calcium 9.4 mg/dL (8.4-10.2); Carbon Dioxide 29 mmol/L (22-29); Chloride 107 mmol/L (96-108); Estimated Glomerular Filt Rate > 60; Glucose Random 91 mg/dL (60-115); Potassium 4.5 mmol/L (3.3-5.1); Sodium 143 mmol/L (135-145); Troponin-I High Sensitivity < 2.7 ng/L (<3.5-35.0)
[2024-08-23 15:05] LABS: Erythrocyte Sedimentation Rate 7 MM/HR (0-15)
[2024-08-24 03:24] LABS: IgA 273 mg/dL (47-310); IgG 1346 mg/dL (600-1640); IgM 62 mg/dL (50-300)
[2024-08-24 06:10] LABS: Immunoglobulin E 386 kU/L (<OR=114)
[2024-08-25 12:04] LABS: Anti Nuclear Antibody Screen NEGATIVE (NEGATIVE)
== END 2024-08-23 11:32 | disposition home or self-care (01) ==
LOC: HO.LAB 11:31
PROVIDERS: PCP Internal Medicine; Visit Provider Hospitalist
DX: J44.89 Other specified chronic obstructive pulmonary disease (principal); J44.9 Chronic obstructive pulmonary disease, unspecified; J98.09 Other diseases of bronchus, not elsewhere classified; J45.51 Severe persistent asthma with (acute) exacerbation; D80.1 Nonfamilial hypogammaglobulinemia; R07.82 Intercostal pain
CPT/HCPCS: 36415; 80048; 82784; 82785; 84484; 85025; 85652; 86038; 99212

== ENCOUNTER 2024-08-23 11:31 | Outpatient (AMB) | payer OTHER, SELFPAY ==
[2024-08-23 11:39] VITALS: BP 112/76; PULSE 90; O2SAT 97; BMI 31.9
--- NOTE | 2024-08-23 11:39 | MHC.OFFVIS ---
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 Apparently he has had significant trouble breathing since she was a baby. 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 Required multiple courses of prednisone. Was treated for significant asthma severe persistent in addition to COPD. 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 He has been treated and managed in [place]. He is tried multiple biologics. Most recently placed on test fire that resulted in worsening respiratory symptoms after the 2nd dose. He actually went to the ER after self injecting the test prior with worsening asthma symptoms. I do not believe he is going to continue. Prior to that he has been on Xolair and also I 0 5 inhibitors. The patient currently is on prednisone since his recent evaluation. He had chest x-ray which I personally reviewed demonstrating some hyperinflated lungs and some hazy opacities suggesting chronic airway disease. 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 Although because of the transportation issues since he was getting in [place] he had to stop the infusions. Will go ahead and request additional blood work. At this time but will wait till he completes the prednisone to make sure we have adequate readings. The patient also will benefit from continue nebulized therapy. He does have percussion vest. I provide him with percussion valve as well that he can use in conjunction to allow better mucus clearance specially with significant constrictive bronchiolitis. He is going to wean off the prednisone is going to continue with the nebulizer including albuterol and also budesonide. The patient also will benefit from Spiriva which we will consider. 01/28/2024 the patient is here for pulmonary follow-up visit. He is still having issues with significant asthma symptoms. He was supposed to follow-up [facility]. But, his car broke down on his way there. Therefore he was not able to make it. The patient also hurt his leg and was not able to get the blood work that we have requested. He has been having worsening wheezing chest tightness. He continues on the Fasenra injection. Will go ahead and request additional blood work including his IgE levels to see if he has any deficiencies that need to be treated. In the meantime he is having significant wheezing and also some prednisone to take. Patient understands the prednisone does come with significant adverse effects. I do believe that using a steroid sparing agent be helpful. Therefore he is willing to try Daliresp at this time. The patient does have significant chronic bronchitis in COPD therefore Daliresp will help decrease the number of exacerbations and also help him with decreasing the need for prednisone. He is going to undergo additional blood work as well. Will consider other biologics for him as well. Apparently he is also medically optimize in his respiratory therapy she will continue at this time. 05/23/2024 the patient is here for pulmonary follow-up visit. He has been struggling with asthma. Has had significant tightness of the chest and wheezing. He has been taking some prednisone although he ran out. In the meantime he did tolerate the Daliresp. Sometimes he gets a headache so does not take it all the time which is okay. He also has been using his nebulizer frequently. He also been using the Dulera and the Spiriva. We did review his allergy testing. Does have significant allergies to dust mites in addition to cats and dogs. The patient has been on the Fasenra injections but he understands that he does not cover all the allergies specially does not cover the elevated IgE that he has. Also the blood work demonstrated that his IgG was within normal limits which is reassuring. Will go ahead and also add Dymista for his nasal allergies and congestion. He should also continue with his Zyrtec and also will give him some prednisone for him to take. The patient should also add budesonide to his nebulizer regimen to help him minimize the need for prednisone. 08/23/2024 the patient is here for pulmonary follow-up visit. He has not been feeling well lately. Part due to allergies. Also developing some chest discomfort. Primarily substernal it was coming and going and then it subsided. He thought it was related to him drinking power drinks. Has not had it since he stopped taking power drinks which is reassuring. Will have him get some cardiac enzymes. This is a positive history of blood clots in the family so therefore will check a D-dimer as well. If his D-dimer is elevated he may need a CTA to rule out thromboembolic disease. However, even if the D-dimer is negative will plan to do a CT scan of the chest to further address his ongoing respiratory symptoms and ongoing chest discomfort in view of nondiagnostic chest x-rays. The patient continues to be embolic therapy with Fasenra. He tried and failed multiple other therapies. For his chronic bronchiolitis and bronchitis with gotten summer azithromycin 3 times a week which helped. Patient also has significant nasal congestion due to allergies and he understands Fasenra is only helping with his eosinophils not with the IgE. He should continue with antihistamine therapy will also start him on Sudafed and also alpha-1. That should help with the sinuses in his nasal congestion. Hopefully can breathe a little better. Will continue with respiratory therapy. Dulera is no longer a available due to needing a PA. Will switch him over to Breztri for the triple therapy in for ease of therapy specially with his medication regimen. Will follow-up in 2-3 months if the patient has any issues prior to this he will call for an earlier assessment. He should have a CT scan of the chest prior to the next visit and will undergo the blood work. Also to note we did briefly talk about theophylline which would be a potential option for him to if he continues have issues. He would like to try to avoid prednisone right now is just completing a prednisone taper. [facility] Medical History (Updated 08/23/24 @ 22:36 by Kleber Bourne MD) Chest pain Asthma-COPD overlap syndrome Hypogammaglobulinemia Bronchitis Constriction of bronchioles Asthma Social History Patient Tobacco Use Status: Never used Tobacco Current occupational status: disabled Review of Systems Const Denies fever(s) Eyes Reports no additional complaints ENT Reports nasal congestion Card Reports chest pain and Reports dyspnea on exertion Resp Reports chest congestion, Reports cough, Reports dyspnea on exertion and Reports wheezing GI Reports no additional complaints Musc Reports no additional complaints Skin/Breast Denies rash Neuro Reports no additional complaints Rudolph/Lymph Denies lymphadenopathy Aller/Immun Reports wheezing Physical Exam Vital Signs: Last Vital Signs Pulse 90 08/23/24 11:39 BP 112/76 08/23/24 11:39 Pulse Ox 97 08/23/24 11:39 Oxygen Delivery Method Room Air 08/23/24 11:39 BMI result Body Mass Index 31.9 Const General: comfortable HEENT Head: Yes atraumatic Neck Neck: Yes supple Chest Chest palpation & inspection: normal inspection of the chest Resp Effort & Inspection: normal respiratory effort Auscultation: wheezes expiratory wheezes, inspiratory wheezes and scattered wheezes and diminished lung sounds Cardio Heart sounds: S1 normal heart sound present and S2 normal heart sound present GI Palpation (GI): Soft to palpation Skin General skin exam: no rashes or lesions noted Extrem General: Yes no clubbing, cyanosis or edema Assessment & Plan Assessment & Plan (1) Constriction of bronchioles: Code(s): J98.09 - Other diseases of bronchus, not elsewhere classified Category: Medical (2) Asthma: Code(s): J45.909 - Unspecified asthma, uncomplicated Category: Medical Qualifiers: Asthma complication type: with acute exacerbation Asthma persistence: persistent Asthma severity: severe Qualified Code(s): J45.51 - Severe persistent asthma with (acute) exacerbation (3) Hypogammaglobulinemia: Comment: resolved 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 Category: Medical (4) Chest pain: Code(s): R07.9 - Chest pain, unspecified Category: Medical Qualifiers: Chest pain type: intercostal pain Qualified Code(s): R07.82 - Intercostal pain (5) Asthma-COPD overlap syndrome: Code(s): J44.89 - Other specified chronic obstructive pulmonary disease Category: Medical Plan Prednisone taper start Breztri start Azithromycin MWF CT chest bloodwork continue nebulizer 3-4 times aday CPT with aerobika and percussion vest sputum culture if able Add budesonide neb BID Add Dymista continue Dulera continue Spiriva conitnue Fasenra continue Daliresp F/U 3-4 months Orders: Orders Troponin-I High Sensitivity Today J44.89 - Other specified chronic obstructive pulmonary disease, J45.51 - Severe persistent asthma with (acute) exacerbation, J98.09 - Other diseases of bronchus, not elsewhere classified, R07.9 - Chest pain, unspecified Complete Blood Count Auto Diff Today J44.89 - Other specified chronic obstructive pulmonary disease, J45.51 - Severe persistent asthma with (acute) exacerbation, J98.09 - Other diseases of bronchus, not elsewhere classified, R07.9 - Chest pain, unspecified Basic Metabolic Panel Today J44.89 - Other specified chronic obstructive pulmonary disease, J45.51 - Severe persistent asthma with (acute) exacerbation, J98.09 - Other diseases of bronchus, not elsewhere classified, R07.9 - Chest pain, unspecified Immunoglobulin E Today J44.89 - Other specified chronic obstructive pulmonary disease, J45.51 - Severe persistent asthma with (acute) exacerbation, J98.09 - Other diseases of bronchus, not elsewhere classified, R07.9 - Chest pain, unspecified Erythrocyte Sedimentation Rate Today J44.89 - Other specified chronic obstructive pulmonary disease, J45.51 - Severe persistent asthma with (acute) exacerbation, J98.09 - Other diseases of bronchus, not elsewhere classified, R07.9 - Chest pain, unspecified CT chest wo IV con Today J44.89 - Other specified chronic obstructive pulmonary disease, J98.09 - Other diseases of bronchus, not elsewhere classified, R07.82 - Intercostal pain Immunoglobulins,IgG IgA IgM Today J44.89 - Other specified chronic obstructive pulmonary disease, J45.51 - Severe persistent asthma with (acute) exacerbation, J98.09 - Other diseases of bronchus, not elsewhere classified, R07.9 - Chest pain, unspecified LEXUS Reflex Titer and Pattern Today J44.89 - Other specified chronic obstructive pulmonary disease, J45.51 - Severe persistent asthma with (acute) exacerbation, J98.09 - Other diseases of bronchus, not elsewhere classified, R07.9 - Chest pain, unspecified Medications: New pseudoephedrine HCl ER 120 mg PO Q12H 30 days 60 tabs 1RF oxymetazoline 0.05% (Afrin Sinus (oxymetazoline)) 2 sprays intranasal Q12H 5 days PRN 22 mL 1RF nasal congestion albuterol sulfate 2.5 mg (3 mL) inhalation Q4H 30 days PRN 360 mL 11RF shortness of breath or wheezing azithromycin 500 mg PO 3XW 28 days 12 tabs 3RF tnqxwozdsq-bvcjqicp-bnuchtplxw 160-9-4.8 mcg/actuation (Breztri Aerosphere) 2 inhalations inhalation BID 30 days 10.7 grams 11RF Refilled albuterol sulfate 90 mcg/actuation 2 inhalations inhalation Q4H 15 days PRN 18 grams 12RF shortness of breath or wheezing J44.9 - Chronic obstructive pulmonary disease, unspecified Coding Level of Care Code Est Pt Level 4 (98011) Complex EM visit Add On G2211 Diagnoses Constriction of bronchioles J98.09 Severe persistent asthma with acute exacerbation J45.51 Asthma complication type: with acute exacerbation Asthma persistence: persistent Asthma severity: severe Hypogammaglobulinemia D80.1 Intercostal pain R07.82 Chest pain type: intercostal pain Asthma-COPD overlap syndrome J44.89 Time Spent (min) 17
--- OUTSIDE RECORDS SUMMARY | 2024-08-23 12:25 | XMS_ITS | Clinical Summary ---
Author Organization [facility] Address [address] [place] [address] Phone Care Team Providers Care Automotive Title Clerk Name Role Phone Jignesh Hale MD Primary [...] Seasonal allergies 03/19/2023 Respiratory distress syndrome in ([facility]/ C V28) 03/19/2023 Overview (02/11/2024): Added by [facility] Obesity (BMI 30-39.9) 03/19/2023 Shortened MA interval 03/19/2023 Overweight (BMI 25.0-29.9) 07/20/2018 Vitamin D insufficiency 07/20/2018 Allergic rhinitis 06/29/2018 Overview (02/11/2024): Dr. Danny Molina-[facility]; local Dr. Zamora-[place] Bronchiolitis obliterans ([facility] V24, [facility] V 28) 06/29/2018 Overview (02/11/2024): Followed by [facility], Drs. Burton & Thaddeus; 09/2016 S/p lung biopsy -Bronchiolitis obliterans Esophagitis 06/29/2018 Overview (02/11/2024): Follows with GI Added by [facility] Added by [facility] Iatrogenic adrenal insufficiency ([facility] V24) 0 06/29/2018 Strabismus 06/29/2018 Severe persistent asthma ([facility] V28) 9 Overview (02/11/2024): 08/2017 [facility]- Dr. Wells; local-Dr. Suarez; no intubation Added by [facility] Encounters Date Type Department Care Team Description 07/05/2024 Telephone [facility] [address] [place] [address] [place] [address] Jignesh Hale MD Referral (Epic routine 03/19/23. No response from patient. Left message on 05/28/23. aek) from Last 3 Months Immunizations Name Administration Dates Next Due DTaP (Infanrix) 6wks to less than 7yo ,12/03/1998,1997,1997,1997 [id number] (Pentacel) 2mo to less than 5yo 05/27/1998,1997,1997,1997 HPV, Unspecified 08/25/2012,04/13/2012, 2 Hep A, Unspecified 03/18/2015,04/18/2014, 014 Hepatitis B Pediatric (Enger ix B; [...] 06/29/2018 DX:Allergic rh initis; COMMENT: [facility]es[facility] reflu x disease) 06/29/2018 DX:GERD (gastroesophageal re flux disease) Asthma, severe 06/29/2018 DX:Asthma, sever e; COMMENT: 08/2017 [facility]- Dr. Wells; local-Dr. Suarez; no intubation Bronchiolitis obliterans (CM S/HCC V24, CMS/HCC V28) 06/29/2018 DX:Bronchiolitis obliterans (HCC); COMMENT: Followed by [facility], Drs. Burton & Thaddeus; 09/2016 S/p lung biopsy -Bronchiolitis obliterans Iatrogenic adrenal insuffici ency (CMS/HCC V24) 06/29/2018 DX:Iatrogenic adrenal insuff iciency (HCC) Strabismus [...] Screening 03/01/2022 COVID-19 Vaccine ( season) 2023 Cholesterol Screening (Lipid Panel) 12/28/2023 12/27/2018 Influenza Vaccine (Season Ended) 2024 12/07/2019, 01/01/2019, 12/22/2017, Additional history exists DTaP,Tdap,and Td Vaccines (9 - Td or Tdap) 09/01/2027 08/31/2017, 04/30/2016, 01/21/2009, Additional history exists HIB Vaccines Completed 05/27/1998, 08/28, 1997, Additional history exists IPV Vaccines Completed 03/06/2002, 09/1998, 05/27/1998, Additional history exists MMR Vaccines Completed 03/06/2002, 03/07/1998 Varicella Vaccines Completed 01/21/2009, 02/25/2000 HPV Vaccines Completed 08/25/2012, 03/29, 02/09/2012 Hepatitis A Vaccines Completed 03/18/2015, 04/18/2014, 03/14/2014 Meningococcal ACWY Vaccine Completed 03/18/2015, Meningococcal B Vaccine Aged Out No l onger eligible based on patient's age to complete this topic RSV Immunization Patients Under 20 months Aged Out No longer eligible based on patient's age to complete this topic Insurance [facility] [employer] Care Teams Automotive Title Clerk Relationship Specialty Start Date End Date Jignesh Hale MD [address] [place] [id number] [facility] - General 10/23/22
== END 2024-08-23 12:07 | disposition home or self-care (01) ==
LOC: HO.HPS 11:31
PROVIDERS: PCP Internal Medicine; Visit Provider Hospitalist
DX: J98.09 Other diseases of bronchus, not elsewhere classified (principal); J45.51 Severe persistent asthma with (acute) exacerbation; D80.1 Nonfamilial hypogammaglobulinemia; R07.82 Intercostal pain; J44.89 Other specified chronic obstructive pulmonary disease
CPT/HCPCS: 99214; G2211

== ENCOUNTER 2024-10-17 10:59 | Outpatient (AMB) | payer OTHER, SELFPAY ==
[2024-10-17 11:01] VITALS: BP 120/68; PULSE 88; O2SAT 94; BMI 30.7
--- NOTE | 2024-10-17 11:01 | A.OFFVIS_ITS ---
Vital Signs 10/17/24 11:01 Height 5 ft 7 in Weight 196 lb 3.382 oz BMI 30.7 BP 120/68 Blood Pressure Location Lt brachial Position Sitting Pulse 88 Pulse Source Pulse Oximeter Pulse Oximetry (%) 94 Oxygen Delivery Method Room Air Intake Visit Reasons: Bronchiolitis Obliterans Allergies No Known Allergies (No Known Allergies*) Allergy (Verified 10/17/24 11:03) HPI Comments Details: The patient is a 29-year-old gentleman with a complicated pulmonary history. Apparently he has had significant trouble breathing since she was a baby. 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 Required multiple courses of prednisone. Was treated for significant asthma severe persistent in addition to COPD. 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 He has been treated and managed in [place]. He is tried multiple biologics. Most recently placed on test fire that resulted in worsening respiratory symptoms after the 2nd dose. He actually went to the ER after self injecting the test prior with worsening asthma symptoms. I do not believe he is going to continue. Prior to that he has been on Xolair and also I 0 5 inhibitors. The patient currently is on prednisone since his recent evaluation. He had chest x-ray which I personally reviewed demonstrating some hyperinflated lungs and some hazy opacities suggesting chronic airway disease. 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 Although because of the transportation issues since he was getting in [place] he had to stop the infusions. Will go ahead and request additional blood work. At this time but will wait till he completes the prednisone to make sure we have adequate readings. The patient also will benefit from continue nebulized therapy. He does have percussion vest. I provide him with percussion valve as well that he can use in conjunction to allow better mucus clearance specially with significant constrictive bronchiolitis. He is going to wean off the prednisone is going to continue with the nebulizer including albuterol and also budesonide. The patient also will benefit from Spiriva which we will consider. 01/28/2024 the patient is here for pulmonary follow-up visit. He is still having issues with significant asthma symptoms. He was supposed to follow-up [facility]. But, his car broke down on his way there. Therefore he was not able to make it. The patient also hurt his leg and was not able to get the blood work that we have requested. He has been having worsening wheezing chest tightness. He continues on the Fasenra injection. Will go ahead and request additional blood work including his IgE levels to see if he has any deficiencies that need to be treated. In the meantime he is having significant wheezing and also some prednisone to take. Patient understands the prednisone does come with significant adverse effects. I do believe that using a steroid sparing agent be helpful. Therefore he is willing to try Daliresp at this time. The patient does have significant chronic bronchitis in COPD therefore Daliresp will help decrease the number of exacerbations and also help him with decreasing the need for prednisone. He is going to undergo additional blood work as well. Will consider other biologics for him as well. Apparently he is also medically optimize in his respiratory therapy she will continue at this time. 05/23/2024 the patient is here for pulmonary follow-up visit. He has been struggling with asthma. Has had significant tightness of the chest and wheezing. He has been taking some prednisone although he ran out. In the meantime he did tolerate the Daliresp. Sometimes he gets a headache so does not take it all the time which is okay. He also has been using his nebulizer frequently. He also been using the Dulera and the Spiriva. We did review his allergy testing. Does have significant allergies to dust mites in addition to cats and dogs. The patient has been on the Fasenra injections but he understands that he does not cover all the allergies specially does not cover the elevated IgE that he has. Also the blood work demonstrated that his IgG was within normal limits which is reassuring. Will go ahead and also add Dymista for his nasal allergies and congestion. He should also continue with his Zyrtec and also will give him some prednisone for him to take. The patient should also add budesonide to his nebulizer regimen to help him minimize the need for prednisone. 08/23/2024 the patient is here for pulmonary follow-up visit. He has not been feeling well lately. Part due to allergies. Also developing some chest discomfort. Primarily substernal it was coming and going and then it subsided. He thought it was related to him drinking power drinks. Has not had it since he stopped taking power drinks which is reassuring. Will have him get some cardiac enzymes. This is a positive history of blood clots in the family so therefore will check a D-dimer as well. If his D-dimer is elevated he may need a CTA to rule out thromboembolic disease. However, even if the D-dimer is negative will plan to do a CT scan of the chest to further address his ongoing respiratory sy mptoms and ongoing chest discomfort in view of nondiagnostic chest x-rays. The patient continues to be embolic therapy with Fasenra. He tried and failed multiple other therapies. For his chronic bronchiolitis and bronchitis with summer azithromycin 3 times a week which helped. Patient also has significant nasal congestion due to allergies and he understands Fasenra is only helping with his eosinophils not with the IgE. He should continue with antihistamine therapy will also start him on Sudafed and also alpha-1. That should help with the sinuses in his nasal congestion. Hopefully can breathe a little better. Will continue with respiratory therapy. Dulera is no longer a available due to needing a PA. Will switch him over to Breztri for the triple therapy in for ease of therapy specially with his medication regimen. Will follow-up in 2-3 months if the patient has any issues prior to this he will call for an earlier assessment. He should have a CT scan of the chest prior to the next visit and will undergo the blood work. Also to note we did briefly talk about theophylline which would be a potential option for him to if he continues have issues. He would like to try to avoid prednisone right now is just completing a prednisone taper. 10/17/2024 the patient is here for a pulmonary follow-up visit. Overall he is doing okay. He is still struggling with the asthma though. He continues to use his respiratory medications as prescribed. The Breztri was not covered. Therefore he continue with the Dulera and the Spiriva which appeared to be partially helpful. The patient will do better on nebulized therapy so will switch him over to Brovana and budesonide. I am hopeful that this will provide him with better administration of the medication. He is exercising as much as he can. He is also working on weight loss which is reassuring. He is minimizing prednisone use which is also very reassuring. He continues with the Daliresp and continues with the allergy medicines. He also continues on the Fasenra. We briefly spoke about theophylline in the past. I do believe theophylline be a good option for him to try to minimize prednisone. Will go ahead and send him a small dose of the pharmacy as well. [facility] Medical History (Updated 08/23/24 @ 22:36 by Kleber Bourne MD) Chest pain Asthma-COPD overlap syndrome Hypogammaglobulinemia Bronchitis Constriction of bronchioles Asthma Social History Patient Tobacco Use Status: Never used Tobacco Current occupational status: disabled Review of Systems Const Denies fever(s) and Reports weight loss Eyes Reports no additional complaints ENT Reports nasal congestion Card Reports chest pain and Reports dyspnea on exertion Resp Reports chest congestion, Reports cough, Reports dyspnea on exertion and Reports wheezing GI Reports no additional complaints Musc Reports no additional complaints Skin/Breast Denies rash Neuro Reports no additional complaints Rudolph/Lymph Denies lymphadenopathy Aller/Immun Reports wheezing Physical Exam Vital Signs: BMI result Body Mass Index 30.7 Const General: comfortable HEENT Head: Yes atraumatic Neck Neck: Yes supple Chest Chest palpation & inspection: normal inspection of the chest Resp Effort & Inspection: normal respiratory effort Auscultation: wheezes expiratory wheezes, inspiratory wheezes and scattered wheezes and diminished lung sounds Cardio Heart sounds: S1 normal heart sound present and S2 normal heart sound present GI Palpation (GI): Soft to palpation Skin General skin exam: no rashes or lesions noted Extrem General: Yes no clubbing, cyanosis or edema Assessment & Plan Assessment & Plan (1) Constriction of bronchioles: Code(s): J98.09 - Other diseases of bronchus, not elsewhere classified Category: Medical (2) Asthma: Code(s): J45.909 - Unspecified asthma, uncomplicated Category: Medical Qualifiers: Asthma severity: severe Asthma persistence: persistent Asthma complication type: with acute exacerbation Qualified Code(s): J45.51 - Severe persistent asthma with (acute) exacerbation (3) Hypogammaglobulinemia: Comment: resolved 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 Category: Medical (4) Chest pain: Code(s): R07.9 - Chest pain, unspecified Category: Medical Qualifiers: Chest pain type: intercostal pain Qualified Code(s): R07.82 - Intercostal pain (5) Asthma-COPD overlap syndrome: Code(s): J44.89 - Other specified chronic obstructive pulmonary disease Category: Medical Plan stopped Azithromycin MWF CT chest bloodwork continue nebulizer 3-4 times aday CPT with aerobika and percussion vest sputum culture if able budesonide neb BID Add Brovana Nebs BID stop Dulera start Theophylline, we will check levels during his next visit continue Spiriva conitnue Fasenra continue Daliresp F/U 2-3 months Medications: New theophylline ER 200 mg PO Q12H 60 tabs 6RF 30 days arformoterol (Brovana) 2 mL inhalation Q12H 120 mL 11RF 30 days J44.9 - Chronic obstructive pulmonary disease, unspecified Discontinued glycopyrrolate-formoterol 9-4.8 mcg (Bevespi Aerosphere) Discontinued Reason: Doctor's Order 2 puffs inhalation Q12H 30 days 10.7 grams 11RF Coding Level of Care Code Est Pt Level 4 (00503) Complex EM visit Add On G2211 Diagnoses Constriction of bronchioles J98.09 Severe persistent asthma with acute exacerbation J45.51 Asthma severity: severe Asthma persistence: persistent Asthma complication type: with acute exacerbation Hypogammaglobulinemia D80.1 Intercostal pain R07.82 Chest pain type: intercostal pain Asthma-COPD overlap syndrome J44.89 Time Spent (min) 17
--- OUTSIDE RECORDS SUMMARY | 2024-10-17 12:17 | XMS_ITS | Clinical Summary ---
Author Organization [facility] Address [address] [place] [address] Phone Care Team Providers Care Donkey Ride Operator Name Role Phone Jignesh Hale MD Primary [...] Seasonal allergies 03/19/2023 Respiratory distress syndrome in ([facility]/ C V28) 03/19/2023 Overview (02/11/2024): Added by [facility] Obesity (BMI 30-39.9) 03/19/2023 Shortened MD interval 03/19/2023 Overweight (BMI 25.0-29.9) 07/20/2018 Vitamin D insufficiency 07/20/2018 Allergic rhinitis 06/29/2018 Overview (02/11/2024): Dr. Danny Molina-[facility]; local Dr. Zamora-[place] Bronchiolitis obliterans ([facility] V24, [facility] V 28) 06/29/2018 Overview (02/11/2024): Followed by [facility], Drs. Burton & Thaddeus; 09/2016 S/p lung biopsy -Bronchiolitis obliterans Esophagitis 06/29/2018 Overview (02/11/2024): Follows with GI Added by [facility] Added by [facility] Iatrogenic adrenal insufficiency ([facility] V24) 0 06/29/2018 Strabismus 06/29/2018 Severe persistent asthma ([facility] V28) 9 Overview (02/11/2024): 08/2017 [facility]'- Dr. Wells; local-Dr. Suarez; no intubation Added by [facility] Immunizations Name Administration Dates Next Due DTaP (Infanrix) 6wks to less than 7yo ,12/03/1998,1997,1997,1997 [id number] (Pentacel) 2mo to less than 5yo 05/27/1998,1997,1997,1997 [...] 06/29/2018 DX:Allergic rh initis; COMMENT: [facility] (gastroesophageal reflu x disease) 06/29/2018 DX:GERD (gastroesophageal re flux disease) Asthma, severe 06/29/2018 DX:Asthma, sever e; COMMENT: 08/2017 [facility]- Dr. Wells; local-Dr. Suarez; no intubation Bronchiolitis obliterans (CM S/HCC V24, [facility] V28) 06/29/2018 DX:Bronchiolitis obliterans (HCC); COMMENT: Followed by [facility]', Drs. Burton & Thaddeus; 09/2016 S/p lung biopsy -Bronchiolitis obliterans Iatrogenic adrenal insuffici ency ([facility]/HCC V24) 06/29/2018 DX:Iatrogenic adrenal insuff iciency (HCC) [...] 5 Years) and At-Risk Patients (6 to 49 Years) (2 of 2 - PPSV23) 2003 02/26/2000 HIV Screening 03/01/2022 Hepatitis C Screening 03/01/2022 Social Influencers of Health Screening 03/01/2022 COVID-19 Vaccine ( season) 2023 Cholesterol Screening (Lipid Panel) 12/28/2023 12/27/2018 Depression Screening 03/29/2024 Influenza Vaccine (#1) 2024 0, 01/01/2019, 12/22/2017, Additional history exists DTaP,Tdap,and Td [...] patient's age to complete this topic Insurance [facility] PL[facility] Care Teams Donkey Ride Operator Relationship Specialty Start Date End Date Jignesh Hale MD [address] [place] [address] PCP - General 10/23/22
== END 2024-10-17 11:24 | disposition home or self-care (01) ==
LOC: HO.HPS 11:00
PROVIDERS: PCP Internal Medicine; Visit Provider Hospitalist
DX: J98.09 Other diseases of bronchus, not elsewhere classified (principal); J45.51 Severe persistent asthma with (acute) exacerbation; D80.1 Nonfamilial hypogammaglobulinemia; R07.82 Intercostal pain; J44.89 Other specified chronic obstructive pulmonary disease
CPT/HCPCS: 99214; G2211

== ENCOUNTER → 2024-10-17 10:59 | Outpatient (BNVA) | payer OTHER, SELFPAY | PROVIDERS: PCP Internal Medicine; Visit Provider Hospitalist | DX: J45.51 Severe persistent asthma with (acute) exacerbation (principal); J44.89 Other specified chronic obstructive pulmonary disease; J44.9 Chronic obstructive pulmonary disease, unspecified; J98.09 Other diseases of bronchus, not elsewhere classified; R07.9 Chest pain, unspecified | CPT/HCPCS: 99212 ==

== ENCOUNTER 2024-12-16 07:44 | Emergency (ER) | payer OTHER, SELFPAY ==
--- NOTE | ~2024-12-16 | XR_ITS ---
CLINICAL HISTORY: upper resp cough 1 view chest x-ray Comparison: CR/SR - XR CHEST 2V - 01/07/24 19:00 EDT Findings: The lungs are clear. Normal size heart. No acute fracture. IMPRESSION: 1. No acute findings. This document has been electronically signed by: Karen Novoa MD on 12/16/2024 11:13:59
[2024-12-16 07:46] VITALS: BP 137/61; PULSE 89; RESP 18; TEMP 36.6; O2SAT 95; BMI 31.2
--- OUTSIDE RECORDS SUMMARY | 2024-12-16 08:12 | XMS_ITS | Encounter Summary ---
Author Organization [facility] Address [address] [place] [address] Phone Care Team Providers Care Duster Tender Name Role Phone [facility] Primary Care Provider +1- [phone] [place] Dye Unavailable Encounter Details Date Type Department Care Team (Late st Contact Info) Description 01/25/2024 Orders Only [facility] [address] [place] [phone] Tran Payan MD [address] [place] [address] Bronchiolitis (Primary Dx) Social History Tobacco Use Types Packs/Day Years Used Date Smoking Tobacco: Never Assessed Sex and Gender Information Value Date Recorded Sex Assigned at Not on file Legal Sex Male 12:02 AM EDT Gender Identity Not on file Sexual Orientation Not on file documented as of this encounter Plan of Treatment Upcoming Encounters Date Type Department Care Team (Late st Contact Info) Description 02/07/2025 11:30 AM EST Office Visit [facility] [address] [place] [phone] Tran Payan MD [address] [place] [address] 05/09/2025 11:30 AM EST Office Visit [facility] [address] [place] [phone] Tran Payan MD [address] [place] [address] Scheduled Orders Name Type Priority Associated Diagnoses Orde r Schedule Pulmonary Function Test (PFT) PFT Routine Bronchiolitis Expected: 01/26/2024, Expires: 01/24/2025 documented as of this encounter Visit Diagnoses Diagnosis Bronchiolitis- Primary Acute bronchiolitis due to other infectious organisms documented in this encounter Care Teams Duster Tender Relationship Specialty Start Date End [facility] [address] [place] [address] PCP - General 07/23/23 [place] Dye [address] [place] [id number] PCP - Insurance PCP 04/19/22 documented as of this encounter
--- OUTSIDE RECORDS SUMMARY | 2024-12-16 08:12 | XMS_ITS | Encounter Summary ---
Author Organization [facility] Address [address] [place] [address] Phone Care Team Providers Care Awning Erector Name Role Phone [facility] Primary Care Provider +1- [phone] [place] Dye Unavailable Encounter Details Date Type Department Care Team (Late st Contact Info) Description 01/03/2024 Orders Only [facility] [address] [place] [phone] Tran Payan MD [address] [place] [address] Severe persistent asthma without complication (Primary Dx) Social History Tobacco Use Types Packs/Day Years Used Date Smoking Tobacco: Never Assessed Sex and Gender Information Value Date Recorded Sex Assigned at Not on file Legal Sex Male 12:02 AM EDT Gender Identity Not on file Sexual Orientation Not on file documented as of this encounter Plan of Treatment Upcoming Encounters Date Type Department Care Team (Late Contact Info) Description 02/07/2025 11:30 AM EST Office Visit [facility] [address] [place] [phone] Tran Payan MD [address] [place], [place] [phone] 05/09/2025 11:30 AM EST Office Visit [facility] [address] [place] [phone] Tran Payan MD [address] [place] [address] Scheduled Orders Name Type Priority Associated Diagnoses Orde r Schedule Pulmonary Function Test (PFT) PFT Routine Severe persistent asthma without complication Expected: 01/04/2024, Expires: 01/02/2025 documented as of this encounter Visit Diagnoses Diagnosis Severe persistent asthma without complication- Primary documented in this encounter Care Teams Awning Erector Relationship Specialty Start Date End [facility] [address] [place] [address] PCP - General 07/23/23 [place] Dye [address] [place] [address] PCP - Insurance PCP 04/19/22 documented as of this encounter
--- OUTSIDE RECORDS SUMMARY | 2024-12-16 08:12 | XMS_ITS ---
Author Name [facility] Organization Unknown Care Team Organization Name Specialty Phone Email Start Date End Da te [facility] ROBI MICHEL Primary Care [email or web address] 12/03/2022 4 [facility] [place] Dye DO Primary Care 06/30/2022 4 [facility] NULL Primary Care 02/03/2022 4
--- OUTSIDE RECORDS SUMMARY | 2024-12-16 08:13 | XMS_ITS | Encounter Summary ---
Author Organization [facility] Address [address] [place] [address] Phone Care Team Providers Care General Helper Name Role Phone [facility] Primary Care Provider +1- [phone] [place] Dye Unavailable Encounter Details Date Type Department Care Team (Late st Contact Info) Description 09/14/2023 Orders Only [facility] [address] [place] [phone] Tran Payan MD [address] [place] [address] Severe persistent asthma with acute exacerbation (Primary Dx) Social History Tobacco Use Types [...] Description 02/07/2025 11:30 AM EST Office Visit [facility] [address] [place] [phone] Tran Payan MD [address] [place] [address] 05/09/2025 11:30 AM EST Office Visit [facility] [address] [place] [phone] Tran Payan MD [address] [place] [address] documented as of this encounter Visit Diagnoses Diagnosis Severe persistent asthma with acute exacerbation- Primary documented in this encounter Care Teams General Helper Relationship Specialty Start Date End [facility] [address] [place] [phone] PCP - General 07/23/23 [place] Dye [address] [place] [address] PCP - Insurance PCP 04/19/22 documented as of this encounter
--- OUTSIDE RECORDS SUMMARY | 2024-12-16 08:13 | XMS_ITS | Clinical Summary ---
Author Organization [facility] Address [address] [place] [address] Phone Care Team Providers Care Carpenter Assistant Installer Name Role Phone Jignesh Hale MD Primary [...] Seasonal allergies 03/19/2023 Respiratory distress syndrome in ([facility]/ C V28) 03/19/2023 Overview (02/11/2024): Added by [facility] Obesity (BMI 30-39.9) 03/19/2023 Shortened [place] interval 03/19/2023 Overweight (BMI 25.0-29.9) 07/20/2018 Vitamin D insufficiency 07/20/2018 Allergic rhinitis 06/29/2018 Overview (02/11/2024): Dr. Danny Molina-[facility]; local Dr. Zamora-[place] Bronchiolitis obliterans ([facility] [place], [facility] V 28) 06/29/2018 Overview (02/11/2024): Followed by [facility], Drs. Burton & Thaddeus; 09/2016 S/p lung biopsy -Bronchiolitis obliterans Esophagitis 06/29/2018 Overview (02/11/2024): Follows with GI Added by [facility] Added by [facility] Iatrogenic adrenal insufficiency ([facility] V24) 0 06/29/2018 Strabismus 06/29/2018 Severe persistent asthma ([facility] V28) 9 Overview (02/11/2024): 08/2017 [facility]'- Dr. Wells; local-Dr. Suarez; no intubation Added by [facility] Immunizations Name Administration Dates Next Due DTaP (Infanrix) 6wks to less than 7yo ,12/03/1998,1997,1997,1997 [id number] (Pentacel) 2mo to less than 5yo 05/27/1998,1997,1997,1997 [...] 06/29/2018 DX:Allergic rh initis; COMMENT: [facility] (g[facility]esophageal reflu x disease) 06/29/2018 DX:GERD (gastroesophageal re flux disease) Asthma, severe 06/29/2018 DX:Asthma, sever e; COMMENT: 08/2017 [facility]- Dr. Wells; local-Dr. Suarez; no intubation Bronchiolitis obliterans (CM S/HCC V24, [facility] V28) 06/29/2018 DX:Bronchiolitis obliterans (HCC); COMMENT: Followed by [facility]', Drs. Burton & Thaddeus; 09/2016 S/p lung biopsy -Bronchiolitis obliterans Iatrogenic adrenal insuffici ency ([facility]/HCC V24) 06/29/2018 DX:Iatrogenic adrenal insuff [...] 03/01/2022 Social Influencers of Health Screening 03/01/2022 Cholesterol Screening (Lipid Panel) 12/28/2023 12/27/2018 Depression Screening 03/29/2024 COVID-19 Vaccine ( season) 2024 Influenza Vaccine (#1) 2024 0, 01/01/2019, 12/22/2017, [...] patient's age to complete this topic Insurance [facility] [place] [address] Care Teams Carpenter Assistant Installer Relationship Specialty Start Date End Date Jignesh Hale MD [address] [place] [address] PCP - General 10/23/22
--- OUTSIDE RECORDS SUMMARY | 2024-12-16 08:13 | XMS_ITS | Encounter Summary ---
Author Organization [facility] Address [address] [place] [address] Phone Care Team Providers Care Lpn Or Medical Assistant Name Role Phone [facility] Primary Care Provider +1- [phone] [place] Dye Unavailable Encounter Details Date Type Department Care Team (Late st Contact Info) Description 11/13/2024 Results Follow-Up [facility] [address] [place] [phone] Renetta Loaiza MD [address] [place] [address] Immunoglobulin E, CBC and differential Social History Tobacco Use Types Packs/Day Years [...] Description 02/07/2025 11:30 AM EST Office Visit [facility] [address] [place] [phone] Tran Payan MD [address] [place] [address] 05/09/2025 11:30 AM EST Office Visit [facility] [address] [place] [phone] Tran Payan MD [address] [place] [address] documented as of this encounter Visit Diagnoses Not on filedocumented in this encounter Care Teams Lpn Or Medical Assistant Relationship Specialty Start Date End Date [facility] [address] [place] [phone] PCP - General 07/23/23 [place] Dye [address] [place] [phone] PCP - Insurance PCP 04/19/22 documented as of this encounter
--- OUTSIDE RECORDS SUMMARY | 2024-12-16 08:13 | XMS_ITS | Clinical Summary ---
Author Organization [facility] spital Address [address] [place] [address] Phone Care Team Providers Care Magnetic Tester Name Role Phone [facility] Primary Care Provider [phone] [place] Dye Unavailable Allergies No known active allergies Medications budesonide-formo teroL (Symbicort) 160-4.5 mcg/actuation inhaler Inhale 2 puffs 2 times a day. 05/26/19 24 Active albuterol-budeso nide 90-80 mcg/actuation HFA aerosol inhaler Inhale 2 puffs. 05/26/19 24 Active cholecalciferol (Vitamin D-3) 50 MCG (1999) tablet Take 2 tablets by mouth 1 time each day. 05/19/19 23 Active EPINEPHrine (Epipen) 0.3 mg/0.3 mL injectionIndicat ions:Severe persistent asthma with acute exacerbation Inject 0.3 mg = 0.3 mL as directed 1 time for 1 dose. 0.3 mL 01/10/20 24 Active montelukast (Singulair) 10 mg tabletIndication s:Severe persistent asthma with acute exacerbation Take 10 mg = 1 tablet by mouth 1 time each day. 30 tablet 3 01/10/20 24 Active tiotropium (Spiriva Respimat) 2.5 mcg/actuation inhalerIndicatio ns:Severe persistent asthma with acute exacerbation Inhale 2 puffs 1 time each day. 12 g 3 01/10/20 24 Active fluticasone (Flonase) 50 mcg/spray nasal sprayIndications :Severe persistent asthma with acute exacerbation Administer 2 sprays into each nostril 1 time each day. 16 g 3 01/10/20 24 Active Ventolin HFA 90 mcg/actuation inhalerIndicatio ns:Severe persistent asthma with acute exacerbation Inhale 2 puffs every 4 hours if needed for wheezing or shortness of breath. 18 g 3 01/10/20 24 Active albuterol 2.5 mg /3 mL (0.083 %) nebulizer solutionIndicati ons:Severe persistent asthma with acute exacerbation Take 2.5 mg = 3 mL by nebulization every 4 hours if needed for wheezing. 75 mL 3 01/13/20 24 Active omeprazole (PriLOSEC) [address] capsuleIndicatio ns:Severe persistent asthma with acute exacerbation Take 20 mg = 1 capsule by mouth 1 time each day. 30 capsule 3 01/13/20 24 Active cetirizine 10 mg tabletIndication s:Severe persistent asthma with acute exacerbation Take 10 mg = 1 tablet by mouth 1 time each day. 90 tablet 3 04/05/19 25 Active benralizumab (Fasenra Pen) 30 mg/mL injectionIndicat ions:Severe persistent asthma with acute exacerbation Inject 30 mg total = 1 mL under the skin every 28 days. 1 mL 11 5 12:23 PM EDT 09/12/19 25 Active roflumilast 500 mcg tablet Take 1 tablet by mouth 1 time each day. 10/30/19 25 Active theophylline ER 200 mg 24 hr capsule Take 200 mg by mouth 1 time each day. Do not crush or chew. Active arformoterol 15 mcg/2 mL nebulizer solution Take 15 mcg by nebulization 2 times a day. 10/18/19 25 Active tezepelumab-ekko 210 mg/1.91 mL (110 mg/mL) pen injector INJECT 210MG SUBCUTANEOUS EVERY 4 WEEKS 1.91 mL 11 07/16/19 24 024 Discontin ued(Side effects) Active Problems Problem Noted Date Diagnosed Date Severe persistent asthma with acute exacerbation 11/10/2024 Bronchiolitis 11/10/2024 Encounters Date Type Department Care Team Description 11/13/2024 Results Follow-Up [facility] [address] [place] [phone] Renetta Loaiza MD Immunoglobulin E, CBC and differential 11/10/2024 4:15 PM EDT Lab [facility] [address] [place] [phone] Severe persistent asthma with acute exacerbation 11/10/2024 3:15 PM EDT - 11/10/2024 11:59 PM EDT Hospital Encounter [facility] [address] [place] [phone] Severe persistent asthma with acute exacerbation; Shortness of breath; Unspecified asthma, uncomplicated Discharge Disposition: Home 11/10/2024 2:30 PM EDT Office Visit [facility] [address] [place] [phone] Renetta Loaiza MD Severe persistent asthma with acute exacerbation (Primary Dx); Bronchiolitis; Abnormal lung function test 11/10/2024 Travel 10/20/2024 Telephone [facility] [address] [place] [phone] Latia Deleon RN 10/06/2024 Telephone [facility] [address] [place] [phone] Amparo Sorto Prior Authorization (Fasenra) 10/02/2024 Orders Only [facility] [address] [place] [phone] Tran Payan MD Bronchiolitis obliterans (HCC) (Primary Dx) from Last 3 Months Immunizations Immunization Administration Dates Next Due DTaP 03/06/2002,12/03/1998 DTaP / HiB / IPV 05/27/1998,1997, 8,1997 HPV, Unspecified 08/25/2012,04/13/2012, 2 Hep A, Unspecified 03/18/2015,04/18/2014, 014 Hep B, Adolescent or Pediatric 1997,1997 IPV 03/06/2002, 9,1997,1997, 1997 Influenza, Unspecified 12/07/2019,2018,12/22/2017,12/18/2016, 12/04/2015,01/06/2015 MMR 03/06/2002,03/07/1998 Meningococcal ACWY, unspecified 03/18/2015,01/21 Pneumococcal Conjugate PCV 7 02/26/2000 Td (adult), unspecified 08/31/2017,04/30/2016 Tdap 01/21/2009 Varicella 01/21/2009,02/25/2000 Social History Tobacco Use Types Packs/Day Years Used Date Smoking Tobacco: Never Assessed Sex and Gender Information Value Date Recorded Sex Assigned at Not on file Legal Sex Male 12:02 AM EDT Gender Identity Not on file Sexual Orientation Not on file Last Filed Vital Signs Vital Sign Reading Time Taken Comments Blood Pressure 120/80 11/10/2024 2:38 PM EDT Pulse 70 11/10/2024 2:38 PM EDT Temperature 36.2 C (97.2 F) 11/10/2024 2:38 PM EDT Respiratory Rate 18 11/10/2024 2:38 PM EDT Oxygen Saturation 97% 11/10/2024 2:38 PM EDT Inhaled Oxygen Concentration - - Weight 90.2 kg (198 lb 13.7 oz) 11/10/2024 2:38 PM EDT Height 170 cm (5' 6.93 ) 08/04/2023 12: 07 PM EDT Body Mass Index 31.21 08/04/2023 12:07 PM EDT Plan of Treatment Upcoming Encounters Date Type Department Care Team (Late st Contact Info) Description 02/07/2025 11:30 AM EST Office Visit [facility] [address] [place] [phone] Tran Payan MD [address] [place] [address] 05/09/2025 11:30 AM EST Office Visit [facility] [address] [place] [phone] Tran Payan MD [address] [place] [address] Health Maintenance Due Date Last Done Comments HIV Screening 1997 Hepatitis B Vaccines (3 of 3 - 3-dose series) 1997 1997, 1997 Hepatitis C Screening 2015 Pneumococcal Vaccine: Pediatrics (0 to 5 Years) and At-Risk Patients (6 to 49 Years) (1 of 2 - PCV) 02/23/2016 02/26/2000 Influenza Vaccine (#1) 2024 , 01/01/2019, 12/22/2017, Additional history exists DTaP/Tdap/Td Vaccines (9 - Td or Tdap) 09/01/2027 08/31/2017, 04/30/2016, 01/21/2009, Additional history exists HIB Vaccines Completed 05/27/1998, 08/28, 1997, Additional history exists IPV Vaccines Completed 03/06/2002, 09/1998, 05/27/1998, Additional history exists MMR Vaccines Completed 03/06/2002, 03/07/1998 Varicella Vaccines Completed 01/21/2009, 02/25/2000 HPV Vaccines Completed 08/25/2012, 03/29, 02/09/2012 Hepatitis A Vaccines Completed 03/18/2015, 04/18/2014, 03/14/2014 Meningococcal Vaccine Completed 03/18/2015 , 03/18/2015, 01/21/2009, Additional history exists Meningococcal B Vaccine Aged Out No l onger eligible based on patient's age to complete this topic Rotavirus Vaccines Aged Out No longer eligible based on patient's age to complete this topic Procedures Procedure Name Priority Date/Time Associated Diagnosis Comments CBC WITH AUTO DIFFERENTIAL - NON ORDERABLE Routine 11/10/2024 4:14 PM EDT Severe persistent asthma with acute exacerbation CBC AND DIFFERENTIAL Routine 11/10/2024 4:14 PM EDT Severe persistent asthma with acute exacerbation IMMUNOGLOBULIN IGE Routine 11/10/2024 4: 14 PM EDT Severe persistent asthma with acute exacerbation HC VENTILATORY TESTS Routine 11/10/2024 3:39 PM EDT Severe persistent asthma with acute exacerbation Shortness of breath Unspecified asthma, uncomplicated from Last 3 Months Results * (ABNORMAL) CBC and differential (11/10/2024 4:14 PM EDT) WBC 11.90(H) 4.48 - 9.61 K cells/uL LAB HEMATOLOGY METHOD 11/10/2024 4:29 PM EDT [facility] RBC 5.80(H) 4.59 - 5.58 M cells/uL LAB HEMATOLOGY METHOD 11/10/2024 4:29 PM EDT [facility] Hemoglobin 15.0 13.5 - 17.0 g/dL LAB HEMATOLOGY METHOD 11/10/2024 4:29 PM EDT [facility] Hematocrit 47.1 40.6 - 50.2 % LAB HEMATOLOGY METHOD 11/10/2024 4:29 PM EDT [facility] MCV 81.2(L) 82.8 - 92.0 fL LAB HEMATOLOGY METHOD 11/10/2024 4:29 PM EDT [facility] MCH 25.9(L) 27.3 - 31.2 pg LAB HEMATOLOGY METHOD 11/10/2024 4:29 PM EDT [facility] MCHC 31.8(L) 32.1 - 34.8 g/dL LAB HEMATOLOGY METHOD 11/10/2024 4:29 PM EDT [facility] RDW 14.2(H) 11.9 - 13.5 % LAB HEMATOLOGY METHOD 11/10/2024 4:29 PM EDT [facility] Platelets 335 150 - 450 K cells/uL LAB HEMATOLOGY METHOD 11/10/2024 4:29 PM EDT [facility] MPV 9.4(L) 9.6 - 11.8 fL LAB HEMATOLOGY METHOD 11/10/2024 4:29 PM EDT [facility] Nucleated RBCs % 0.0 % LAB HEMATOLOGY METHOD 11/10/2024 4:29 PM EDT [facility] Absolute Nucleated RBC Count 0.00 K cells/uL LAB HEMATOLOGY METHOD 11/10/2024 4:29 PM EDT [facility] Neutrophils and Bands % 55.8 43.5 - 69.0 % LAB HEMATOLOGY METHOD 11/10/2024 4:29 PM EDT [facility] Lymphocytes % 32.9 20.0 - 42.9 % LAB HEMATOLOGY METHOD 11/10/2024 4:29 PM EDT [facility] Monocytes % 5.4(L) 6.5 - 11.5 % LAB HEMATOLOGY METHOD 11/10/2024 4:29 PM EDT [facility] Eosinophils % 5.1(H) 0.7 - 4.6 % LAB HEMATOLOGY METHOD 11/10/2024 4:29 PM EDT [facility] Basophils % 0.3 0.3 - 1.0 % LAB HEMATOLOGY METHOD 11/10/2024 4:29 PM EDT [facility] Immature Granulocytes % 0.5 0.2 - 0.5 % LAB HEMATOLOGY METHOD 11/10/2024 4:29 PM EDT [facility] Absolute Neutrophil Count 6.64(H) 2.07 - 6.00 K cells/uL LAB HEMATOLOGY METHOD 11/10/2024 4:29 PM EDT [facility] Absolute Lymphocyte Count 3.91(H) 1.39 - 2.72 K cells/uL LAB HEMATOLOGY METHOD 11/10/2024 4:29 PM EDT [facility] Absolute Monocyte Count 0.64 0.38 - 0.83 K cells/uL LAB HEMATOLOGY METHOD 11/10/2024 4:29 PM EDT [facility] Absolute Eosinophil Count 0.61(H) 0.04 - 0.31 K cells/uL LAB HEMATOLOGY METHOD 11/10/2024 4:29 PM EDT [facility] Absolute Basophil Count 0.04 0.02 - 0.06 K cells/uL LAB HEMATOLOGY METHOD 11/10/2024 4:29 PM EDT [facility] Absolute Immature Granulocyte Count 0.06(H) 0.01 - 0.04 K cells/uL LAB HEMATOLOGY METHOD 11/10/2024 4:29 PM EDT [facility] Blood Venous structure / Unknown Venipuncture / Unknown 11/10/2024 4:14 PM EDT 11/10/2024 4:19 PM EDT us Judith Mayorga MD LAB BLOOD ORDERABLES Final Res ult Performing Organization Address City/[facility]/ZIP Co de Phone Number [facility] [address] [place] [address], [place] [phone] * (ABNORMAL) Immunoglobulin E (11/10/2024 4:14 PM EDT) IgE 316(H) <=200 unit/mL 11/10/2024 5:06 PM EDT [facility] Blood Venous structure / Unknown Venipuncture / Unknown 11/10/2024 4:14 PM EDT 11/10/2024 4:19 PM EDT Judith Mayorga MD LAB BLOOD ORDERABLES Final Res ult Performing Organization Address [facility] Co de Phone Number [facility] [address] [place] [address], [place] [phone] * Pulmonary Function Test (PFT) (11/10/2024 3:39 PM EDT) Interpretation Patient arrived to the lab post Ventolin and so reported spirometry values should be considered as post-bronchodi lator testing. Spirometry was done with good technique and reproducibilit y. The effort-indepen dent portion of the expiratory flow-volume curve was scooped, consistent with obstruction. The FEV1/FVC ratio was below the lower limit of normal and the FEV1 z-score indicates mild obstruction. The oxygen saturation (SpO2) was normal. When compared to post-bronchodi lator testing 08/04/23, FEV1 and FVC are unchanged. [facility] PATIENT Age 29 years [facility] PATIENT Height 170 cm [employer] PATIENT Weight 90.2 kg [employer] Technical Notes Patient arrived to the lab post Ventolin (12:30pm). Testing performed at 3:30pm. [facility] FVC Actual PostBD 3.18 L FO [facility] FVC PostBD of Predicted 70 % [facility] FVC PostZScore -2.24 [facility] FEV1 Actual PostBD 2.15 L [facility] FEV1 PostBD of Predicted 56 % [facility] FEV1 PostZScore -3.19 [facility] FEV1/FVC Actual PostBD 68 % [facility] FEV1/FVC PostBD of Predicted 80 % [facility] [id number] PostZScore -2.44 [facility] [id number] Actual PostBD 1.42 L/s [facility] [id number] PostBD of Predicted 34 % [facility] [id number] Actual PostBD 1.63 L/s [facility] [id number] PostBD of Predicted 32 % [facility] [id number] Actual PostBD 0.74 L/s [facility] [id number] PostBD of Predicted 41 % [facility] PEFR Actual PostBD 3.77 L/s [facility] PEFR PostBD of Predicted 39 % [facility] OXIMETRY SaO2&RA1 97 % [facility] 11/10/2024 3:25 PM EDT us Judith Mayorga MD PFT ORDERABLES Final Result Performing Organization Address City/State/[facility] de Phone Number [facility] [address] [place] [address], from Last 3 Months Insurance ACO ACO Care Teams Magnetic Tester Relationship Specialty Start Date End Date [facility] [address] [place] [id number] PCP - General 07/23/23 [place] Dye [address] [place] [address] PCP - Insurance PCP 04/19/22
--- NOTE | 2024-12-16 08:18 | ED_ITS ---
HPI - URI/Sore Throat General Chief Complaint: Dyspnea Stated Complaint: asthma Time Seen by Provider: 12/16/24 08:13 Source: patient Mode of arrival: ambulatory Limitations: no limitations History of Present Illness ED Provider: Ligia Akbar APRN HPI Narrative: 29-year-old male with a history of severe persistent asthma on Theophylline, Spiriva, Fasenra, azithromycin QOD, prednisone PRN followed by Dr Bourne with history of multiple admissions here with complaints of waking with SOB, wheezing. Used his duoneb and subsequent albuterol before arrival with no relief. Did start to have some wheezing last evening so he took one dose of 10mg prednusone. Asthma triggers are weather changes, allergens and illnesses. Patient denies current illness. Unsure of trigger. Denies fevers, chills, productive cough, chest pain, leg swelling, leg pain, vomiting or diarrhea. No recent travel. No sick contact. Denies any history of tobacco use or vaping Related Data Home Medications ?Medication ?Instructions ?Recorded ?Confirmed cholecalciferol (vitamin D3) 10 10 mcg PO DAILY mcg (400 unit) capsule montelukast 10 mg tablet 10 mg PO DAILY 07/02/20 omeprazole 20 mg capsule,delayed 20 mg PO DAILY release cetirizine 10 mg tablet 10 mg PO DAILY 09/14/23 epinephrine 0.3 mg/0.3 mL IM 09/14/23 injection, auto-injector nebulizers 09/14/23 benralizumab 30 mg/mL subcutaneous mg subcut 01/28/24 auto-injector (Fasenra Pen) tiotropium bromide 2.5 2 puff inhalation DAILY 04/21 mcg/actuation mist for inhalation (Spiriva Respimat) Previous Rx's ?Medication ?Instructions ?Recorded mometasone-formoterol HFA 200 2 puff inhalation Q12H 3 0 days #13 01/28/24 mcg-5 mcg/actuation aerosol grams inhaler (Dulera) roflumilast 500 mcg tablet 500 mcg PO DAILY #30 tabs 1 03/29/23 (Daliresp) azelastine 137 mcg-fluticasone 50 1 spray intranasal B ID 30 days #23 05/23/25 mcg/spray nasal spray (Dymista) grams budesonide 0.5 mg/2 mL suspension 0.5 mg (2 mL) inhala tion BID 30 05/23/24 for nebulization days #120 mL albuterol sulfate 2.5 mg/3 mL 2.5 mg (3 mL) inhalation Q4H PRN 08/23/24 (0.083 %) solution for nebulization shortness of breat h or wheezing 30 days #360 mL albuterol sulfate 90 mcg/actuation 2 inh inhalation Q4 H PRN shortness 08/23/24 aerosol inhaler of breath or wheezing 15 day s #18 grams azithromycin 500 mg tablet 500 mg PO 3XW 28 days #12 t abs 08/23/24 budesonide 160 mcg-glycopyr 9 2 inh inhalation BID 30 days #10.7 08/23/24 mcg-formot 4.8 mcg/actuation HFA grams inhaler (Breztri Aerosphere) oxymetazoline 0.05 % nasal spray 2 spray intranasal Q1 2H PRN nasal 08/23/24 (Afrin Sinus (oxymetazoline)) congestion 5 days #22 mL pseudoephedrine HCl 120 mg 120 mg PO Q12H 30 days #60 tabs 08/23/24 tablet,extended release budesonide 180 mcg/actuation 1 inh inhalation BID #1 e a 08/30/24 breath activated powder inhaler (Pulmicort Flexhaler) arformoterol 15 mcg/2 mL solution 2 ml inhalation Q12H 30 days #120 10/17/24 for nebulization (Brovana) mL theophylline 200 mg 200 mg PO Q12H 30 days #60 t abs 10/17/24 tablet,extended release,12 hr prednisone 10 mg tablet 20 mg (2 x 10 mg) PO DAILY 3 0 days 11/09/24 #60 tabs prednisone 20 mg tablet 40 mg (2 x 20 mg) PO BID #8 tabs 12/16/24 Allergies Allergy/AdvReac Type Severity Reaction Status Date / Time No Known Allergies (No Known Allergy Verified 12/16/24 07:49 Allergies*) Review of Systems Review of Systems: Yes all other systems are reviewed and are negative Constitutional: Constitutional: Reports no additional constitutional complaints, Denies body ache(s), Denies chills, Denies fever(s), Denies headache(s) and Denies weakness Eyes: Eyes: Reports no additional eye complaints and Denies change in vision ENT: Reports system reviewed and no additional complaints, except as documented, Denies dizziness, Denies headache(s), Denies nasal congestion, Denies nasal discharge and Denies neck pain Cardiovascular: Cardiovascular: Reports no additional cardiovascular complaints, Denies chest pain, Denies leg edema and Reports dyspnea Respiratory: Respiratory: Reports no additional respiratory complaints, Denies cough, Reports dyspnea and Reports wheezing Gastrointestinal: Gastrointestinal: Reports no additional gastrointestinal complaints, Denies abdominal pain, Denies diarrhea, Denies nausea and Denies vomiting Genitourinary: Genitourinary: Denies urinary incontinence Musculoskeletal: Musculoskeletal: Reports no additional musculoskeletal complaints, Denies back pain, Denies arthralgias, Denies joint swelling, Denies neck pain, Denies numbness and Denies tingling Integumentary/Breasts: Skin/Breast: Reports system reviewed and no additional complaints, except as docu and Denies rash Neurologic: Reports system reviewed and no additional complaints, except as documented, Denies Abnormal speech present, Denies dizziness, Denies headache(s), Denies numbness, Denies tingling and Denies weakness Allergic/Immunologic: Allergic/Immunologic: Reports wheezing PMFSH Past Medical History Attestation statement: The following information was validated with the patient. Source: old records reviewed and nursing notes reviewed Medical History Chest pain Asthma-COPD overlap syndrome Hypogammaglobulinemia Bronchitis Constriction of bronchioles Asthma Social History Social History Patient Tobacco Use Status: Never used Tobacco Smoked in Last 30 Days: No Use of substances other than those prescribed or required for medical reasons: No Advance Directives: No Advance Directives Information Provided: Yes Do you have a plan to hurt others: No Plan Current occupational status: disabled Physical Exam Vital Signs: Vital Signs: Last Vital Signs Temp 0 F L 12/16/24 11:32 Pulse 71 12/16/24 11:32 Resp 16 12/16/24 11:32 BP 99/71 12/16/24 11:32 Pulse Ox 96 12/16/24 11:32 O2 Del Method Room Air 12/16/24 11:32 BMI result Body Mass Index 31.2 Const: General: cooperative, healthy appearing, comfortable and no acute distress Orientation/consciousness: patient oriented x3 Limitations: no limitations HEENT: Head: Yes normal to inspection Ears: hearing grossly normal bilaterally General nose exam: Normal external nose present Face and sinus: Yes normal facial exam Mouth: Normal oral and palatal mucosa present Throat: Yes posterior oropharynx normal Eyes: General: appearance normal, both eyes and all related structures Pupils: Equal, round and reactive pupils present Neck: Neck: Yes normal visual inspection Chest: Chest palpation & inspection: normal inspection of the chest Resp: Effort & Inspection: normal respiratory effort Auscultation: wheezes expiratory wheezes Cardio: Rate: regular rate Rhythm: regular rhythm Peripheral pulses: Peripheral pulses 2+ throughout GI: Inspection: Yes normal to inspection Palpation (GI): Soft to palpation and nontender Auscultation: normal bowel sounds Back/Spine/Pelvis: Thoracic/Lumbar Spine: thoracic and lumbar spine normal to inspection Skin: General skin exam: no rashes or lesions noted Neuro: General: patient oriented x3, no focal motor deficits and normal sensation to monofilament Cranial nerves: Yes Equal, round and reactive pupils present Cognition (Neuro): normal cognition Speech: No Abnormal speech present Gait exam (Neuro): Normal gait present Motor exam (neuro): 5/5 motor strength present throughout Extrem: General: Yes normal to inspection Course Course Course Narrative: X-ray unremarkable. Viral testing is negative. Patient felt improved with observation in the emergency room. Will discharge him home with a brief course of prednisone. Reviewed worrisome signs and symptoms of when to return to the emergency room. Comfortable plan for discharge home. Medications Administered Discontinued Medications Generic Name Dose Route Start Last Admin Trade Name Freq PRN Reason Stop Dose Admin Prednisone 40 mg 12/16/24 08:27 12/16/24 08:39 Prednisone 20 Mg Tablet PO 12/16/24 08:28 40 mg ONCE ONE Administration Medical Decision Making Medical Decision Making [facility] Narrative: 29-year-old male with a history of severe persistent asthma on Theophylline, Spiriva, Fasenra, azithromycin QOD, prednisone PRN followed by Dr Bourne with history of multiple admissions here with complaints of waking with SOB, wheezing. Used his duoneb and subsequent albuterol before arrival with no relief. Did start to have some wheezing last evening so he took one dose of 10mg prednusone. Asthma triggers are weather changes, allergens and illnesses. Patient denies current illness. Unsure of trigger. Denies fevers, chills, productive cough, chest pain, leg swelling, leg pain, vomiting or diarrhea. No recent travel. No sick contact. Denies any history of tobacco use or vaping On arrival resting back in the bed, speaking full sentences, oxygen saturation >95% RA with mild wheezing throughout. Will obtain viral testing CXR ordered by triage Will perform bronchodilator, give additinal 40mg prednisone Differential Diagnosis Differential Diagnoses: The differential diagnosis associated with the presentation includes asthma exacerbation PERC 0, PE less likely PNA Admission/Observation Consideration of admission/observation: Escalation of care including admission/observation considered Lab Data MDM Lab Attestation statement: I reviewed the patient's lab results. Labs: Lab Results 12/16/24 Range/Units 08:07 COVID-19 (SAHRA) Negative (Negative) COVID-19 Clin Com See Note Influenza Type A (MIGUE) Negative (Negative) Influenza Type B (MIGUE) Negative (Negative) Influenza A & B Note See Note Independent Interpretation I performed an independent interpretation of an: Plain X-Ray Interpretation: I independently viewed the x-ray and agree with the radiology report Radiology Impression Discussion of test interpretation with radiology: I have reviewed the radiologist's reading. Radiologist Impression: [address] [address] XRay Report Signed Patient: Keny Moon MR#: [id number] : 1995 Acct:[id number] Age/Sex: 29 / M ADM Date: 12/16/24 Loc: .ED Attending Dr: Ordering Physician: Hardik Curiel MD Date of Service: 12/16/24 Procedure(s): XR chest 1V Accession Number(s): [id number] cc: Hardik Curiel MD; LUKAS FERRARI MD~ Reason for Exam: upper resp/cough CLINICAL HISTORY: upper resp cough 1 view chest x-ray Comparison: CR/SR - XR CHEST 2V - 01/07/24 19:00 EDT Findings: The lungs are clear. Normal size heart. No acute fracture. IMPRESSION: 1. No acute findings. Prescription Management I considered prescription management with: Antibiotic Discharge Plan Discharge Clinical Impression: Asthma Qualifiers: Asthma severity: severe Asthma persistence: persistent Asthma complication type: with acute exacerbation Qualified Code(s): J45.51 - Severe persistent asthma with (acute) exacerbation Patient Disposition: Home, Self-Care Instructions: Asthma (ED) Additional Instructions: Continue your home medication Start prednisone tomorrow Return for worsening symptoms Follow-up with your outpatient provider Testing for COVID and flu are negative Your x-ray is normal Prescriptions: New prednisone 20 mg tablet 40 mg PO BID Qty: 8 0RF No Action Pulmicort Flexhaler 180 mcg/actuation aerosol powdr breath activated 1 inh inhalation BID Qty: 1 11RF prednisone 10 mg tablet 20 mg PO DAILY 30 Days Qty: 60 2RF montelukast 10 mg tablet 10 mg PO DAILY cholecalciferol (vitamin D3) 10 mcg (400 unit) capsule 10 mcg PO DAILY omeprazole 20 mg capsule,delayed release(DR/EC) 20 mg PO DAILY cetirizine 10 mg tablet 10 mg PO DAILY epinephrine 0.3 mg/0.3 mL auto-injector IM (DME) nebulizers Misc See Rx Instructions .ROUTE Rx Instructions: As directed pseudoephedrine HCl 120 mg tablet extended release 120 mg PO Q12H 30 Days Qty: 60 1RF oxymetazoline [Afrin Sinus (oxymetazoline)] 0.05 % spray,non-aerosol 2 spray intranasal Q12H PRN (Reason: nasal congestion) 5 Days Qty: 22 1RF azithromycin 500 mg tablet 500 mg PO 3XW 28 Days Qty: 12 3RF albuterol sulfate 90 mcg/actuation HFA aerosol inhaler 2 inh inhalation Q4H PRN (Reason: shortness of breath or wheezing) 15 Days Qty: 18 12RF albuterol sulfate 2.5 mg /3 mL (0.083 %) solution for nebulization 2.5 mg inhalation Q4H PRN (Reason: shortness of breath or wheezing) 30 Days Q ty: 360 11RF Breztri Aerosphere 160-9-4.8 mcg/actuation HFA aerosol inhaler 2 inh inhalation BID 30 Days Qty: 10.7 11RF arformoterol [Brovana] 15 mcg/2 mL solution for nebulization 2 ml inhalation Q12H 30 Days Qty: 120 11RF theophylline 200 mg tablet extended release 12 hr 200 mg PO Q12H 30 Days Qty: 60 6RF Spiriva Respimat 2.5 mcg/actuation mist 2 puff inhalation DAILY Fasenra Pen 30 mg/mL auto-injector subcut roflumilast [Daliresp] 500 mcg tablet 500 mcg PO DAILY Qty: 30 11RF Dulera 200-5 mcg/actuation HFA aerosol inhaler 2 puff inhalation Q12H 30 Days Qty: 13 11RF budesonide 0.5 mg/2 mL suspension for nebulization 0.5 mg inhalation BID 30 Days Qty: 120 11RF azelastine-fluticasone [Dymista] 137-50 mcg/spray spray,non-aerosol 1 spray intranasal BID 30 Days Qty: 23 11RF Rx Instructions: administer into each nostril Interventions: ED Discharge Assessment Last Done: 12/16/24 11:32 Discharge Date/Time: 12/16/24 11:41 Print Language: [place] Citizen
[2024-12-16 08:35] LABS: COVID-19 Test Negative (Negative); IDNOW Serial# 152EDE1D; IDNOW Serial# 16C4AD1C; Influenza B2 Negative (Negative)
[2024-12-16 08:40] VITALS: PULSE 88; RESP 17; O2SAT 98
[2024-12-16 11:26] VITALS: BP 99/71; PULSE 71; RESP 16; O2SAT 96
[2024-12-16 11:32] VITALS: BP 99/71; PULSE 71; RESP 16; TEMP -17.7; TEMP 0; O2SAT 96
== END 2024-12-16 11:41 | disposition home or self-care (01) ==
PROVIDERS: Emergency Provider Emergency Medicine; PCP Internal Medicine
DX: J45.51 Severe persistent asthma with (acute) exacerbation (principal); R05.9 Cough, unspecified; R06.02 Shortness of breath; Z03.818 Encounter for observation for suspected exposure to other biological agents ruled out; Z79.899 Other long term (current) drug therapy
CPT/HCPCS: 71045; 87502; 87635; 99284

== ENCOUNTER → 2024-12-16 07:50 | Outpatient (BNV) | payer OTHER, SELFPAY | PROVIDERS: Emergency Provider Emergency Medicine; PCP Internal Medicine; Visit Provider Radiology Diagnostic Radiology | DX: R05.8 Other specified cough (principal) | CPT/HCPCS: 71045 ==

== ENCOUNTER 2025-01-24 12:28 | Emergency (ER) | payer OTHER, SELFPAY ==
--- NOTE | ~2025-01-24 | XR_ITS ---
EXAMINATION: XR CHEST CLINICAL INFORMATION: cough COMPARISON: 12/16/2024 TECHNIQUE: 2 views of the chest were obtained. FINDINGS: Small focal linear density in the lateral right mid third lung zone is unchanged. Linear density left lung base likely represents atelectasis. Lungs are clear otherwise. Heart size is within normal limits. There is no pleural effusion. XR/XR chest 2V IMPRESSION: No acute disease. Electronically signed by: Gerson Giraldo MD 01/24/2025 01:22 PM EDT
[2025-01-24 12:55] VITALS: BP 121/65; PULSE 80; RESP 18; TEMP 36.6; O2SAT 96; BMI 29.8
--- NOTE | 2025-01-24 12:55 | ED.GENADULT ---
HPI - General Adult General Chief complaint: Upper Respiratory Symptoms Stated complaint: Dizziness Headache Time Seen by Provider: 01/24/25 15:32 Source: patient Mode of arrival: ambulatory Limitations: no limitations History of Present Illness ED Provider: Dr. Chris HPI narrative: 29-year-old male presented hospital today for 5 days of cough and congestion we will dizziness. Patient stated that he has been feeling more fatigued. He has history of asthma as well. And has been having more coughing. Related Data Home Medications ?Medication ?Instructions ?Recorded ?Confirmed cholecalciferol (vitamin D3) 10 10 mcg PO DAILY 07/02/20 mcg (400 unit) capsule montelukast 10 mg tablet 10 mg PO DAILY 07/02/20 omeprazole 20 mg capsule,delayed 20 mg PO DAILY 07/02/20 release cetirizine 10 mg tablet 10 mg PO DAILY 09/14/23 epinephrine 0.3 mg/0.3 mL IM 09/14/23 injection, auto-injector nebulizers 09/14/23 benralizumab 30 mg/mL subcutaneous mg subcut 01/28/24 auto-injector (Fasenra Pen) tiotropium bromide 2.5 2 puff inhalation DAILY 01/28/24 mcg/actuation mist for inhalation (Spiriva Respimat) Previous Rx's ?Medication ?Instructions ?Recorded mometasone-formoterol HFA 200 2 puff inhalation Q12H 30 days #13 01/28/24 mcg-5 mcg/actuation aerosol grams inhaler (Dulera) roflumilast 500 mcg tablet 500 mcg PO DAILY #30 tabs 01/28/24 (Daliresp) azelastine 137 mcg-fluticasone 50 1 spray intranasal BID 30 days #23 05/23/24 mcg/spray nasal spray (Dymista) grams budesonide 0.5 mg/2 mL suspension 0.5 mg (2 mL) inhalation BID 30 05/23/24 for nebulization days #120 mL albuterol sulfate 2.5 mg/3 mL 2.5 mg (3 mL) inhalation Q4H PRN 08/23/24 (0.083 %) solution for nebulization shortness of breath or wheezing 30 days #360 mL albuterol sulfate 90 mcg/actuation 2 inh inhalation Q4H PRN shortness 08/23/24 aerosol inhaler of breath or wheezing 15 days #18 grams azithromycin 500 mg tablet 500 mg PO 3XW 28 days #12 tabs 08/23/24 budesonide 160 mcg-glycopyr 9 2 inh inhalation BID 30 days #10.7 08/23/24 mcg-formot 4.8 mcg/actuation HFA grams inhaler (Breztri Aerosphere) oxymetazoline 0.05 % nasal spray 2 spray intranasal Q12H PRN nasal 08/23/24 (Afrin Sinus (oxymetazoline)) congestion 5 days #22 mL pseudoephedrine HCl 120 mg 120 mg PO Q12H 30 days #60 tabs 08/23/24 tablet,extended release budesonide 180 mcg/actuation 1 inh inhalation BID #1 ea 08/30/24 breath activated powder inhaler (Pulmicort Flexhaler) arformoterol 15 mcg/2 mL solution 2 ml inhalation Q12H 30 days #120 10/17/24 for nebulization (Brovana) mL theophylline 200 mg 200 mg PO Q12H 30 days #60 tabs 10/17/24 tablet,extended release,12 hr prednisone 10 mg tablet 20 mg (2 x 10 mg) PO DAILY 30 days 11/09/24 #60 tabs prednisone 20 mg tablet 40 mg (2 x 20 mg) PO BID #8 tabs 12/16/24 acetaminophen 500 mg tablet 1,000 mg (2 x 500 mg) PO Q6H PRN 01/24/25 (Tylenol Extra Strength) pain #60 tabs benzonatate 200 mg capsule 200 mg PO TID PRN cough #14 caps 01/24/25 ibuprofen 400 mg tablet 400 mg PO Q8H PRN pain #30 tabs 01/24/25 prednisone 20 mg tablet 40 mg (2 x 20 mg) PO DAILY 5 days 01/24/25 #10 tabs Allergies Allergy/AdvReac Type Severity Reaction Status Date / Time No Known Allergies (No Known Allergy Verified 01/24/25 12:56 Allergies*) Review of Systems Review of Systems: Pertinent review of systems as mentioned in HPI. All other system otherwise negative. [facility] Past Medical History [facility] Narrative: Asthma, bronchitis Medical History Chest pain Asthma-COPD overlap syndrome Hypogammaglobulinemia Bronchitis Constriction of bronchioles Asthma Social History Social History Patient Tobacco Use Status: Never used Tobacco Advance Directives: No Advance Directives Information Provided: No Do you have a plan to hurt others: No Plan Current occupational status: disabled Physical Exam ED Vital Signs: Vital Signs - 24 hr 01/24/25 12:55 01/24/25 15:41 Temperature 98 F 98 F Pulse Rate 80 80 Respiratory Rate 18 18 Blood Pressure 121/65 121/65 Pulse Oximetry 96 96 Oxygen Delivery Method Room Air Room Air BMI result Body Mass Index 29.8 Course Course Course Narrative: Rapid medical screening exam was performed. Patient stable at time of evaluation. 29 yo male here for cough, dizziness x 5 days. Lightheadedness. Katiana Chris DO 01/24/25 1255 Medical Decision Making Medical Decision Making [facility] Narrative: This is a 29-year-old male presented hospital today for evaluation of coughing and dizziness for the past 5 days. Complain of this as a lightheadedness. Chest x-ray was negative for any signs of pneumonia. COVID flu negative. We will plan to discharge patient with Tessalon Perles, prednisone, ibuprofen and Tylenol as well. Differential Diagnosis Differential Diagnoses: The differential diagnosis associated with the presentation includes Bronchitis, URI, pneumonia, asthma exacerbation Lab Data [facility] Lab Attestation statement: I reviewed the patient's lab results. Labs: Lab Results 01/24/25 Range/Units 13:31 COVID-19 (SAHRA) Negative (Negative) COVID-19 Clin Com See Note Influenza Type A (MIGUE) Negative (Negative) Influenza Type B (MIGUE) Negative (Negative) Influenza A & B Note See Note Independent Interpretation I performed an independent interpretation of an: Plain X-Ray Radiology Impression Discussion of test interpretation with radiology: I have reviewed the radiologist's reading. Discharge Plan Discharge Clinical Impression: Cough Qualifiers: Cough type: acute Qualified Code(s): R05.1 - Acute cough Upper respiratory infection Qualifiers: URI type: unspecified viral URI Qualified Code(s): J06.9 - Acute upper respiratory infection, unspecified Patient Disposition: Home, Self-Care Prescriptions: New prednisone 20 mg tablet 40 mg PO DAILY 5 Days Qty: 10 0RF acetaminophen [Tylenol Extra Strength] 500 mg tablet 1,000 mg PO Q6H PRN (Reason: pain) Qty: 60 0RF ibuprofen 400 mg tablet 400 mg PO Q8H PRN (Reason: pain) Qty: 30 0RF benzonatate 200 mg capsule 200 mg PO TID PRN (Reason: cough) Qty: 14 0RF No Action Pulmicort Flexhaler 180 mcg/actuation aerosol powdr breath activated 1 inh inhalation BID Qty: 1 11RF prednisone 10 mg tablet 20 mg PO DAILY 30 Days Qty: 60 2RF prednisone 20 mg tablet 40 mg PO BID Qty: 8 0RF montelukast 10 mg tablet 10 mg PO DAILY cholecalciferol (vitamin D3) 10 mcg (400 unit) capsule 10 mcg PO DAILY omeprazole 20 mg capsule,delayed release(DR/EC) 20 mg PO DAILY cetirizine 10 mg tablet 10 mg PO DAILY epinephrine 0.3 mg/0.3 mL auto-injector IM (DME) nebulizers Misc See Rx Instructions .ROUTE Rx Instructions: As directed pseudoephedrine HCl 120 mg tablet extended release 120 mg PO Q12H 30 Days Qty: 60 1RF oxymetazoline [Afrin Sinus (oxymetazoline)] 0.05 % spray,non-aerosol 2 spray intranasal Q12H PRN (Reason: nasal congestion) 5 Days Qty: 22 1RF azithromycin 500 mg tablet 500 mg PO 3XW 28 Days Qty: 12 3RF albuterol sulfate 90 mcg/actuation HFA aerosol inhaler 2 inh inhalation Q4H PRN (Reason: shortness of breath or wheezing) 15 Days Qty: 18 12RF albuterol sulfate 2.5 mg /3 mL (0.083 %) solution for nebulization 2.5 mg inhalation Q4H PRN (Reason: shortness of breath or wheezing) 30 Days Qty: 360 11RF Breztri Aerosphere 160-9-4.8 mcg/actuation HFA aerosol inhaler 2 inh inhalation BID 30 Days Qty: 10.7 11RF arformoterol [Brovana] 15 mcg/2 mL solution for nebulization 2 ml inhalation Q12H 30 Days Qty: 120 11RF theophylline 200 mg tablet extended release 12 hr 200 mg PO Q12H 30 Days Qty: 60 6RF Spiriva Respimat 2.5 mcg/actuation mist 2 puff inhalation DAILY Fasenra Pen 30 mg/mL auto-injector subcut roflumilast [Daliresp] 500 mcg tablet 500 mcg PO DAILY Qty: 30 11RF Dulera 200-5 mcg/actuation HFA aerosol inhaler 2 puff inhalation Q12H 30 Days Qty: 13 11RF budesonide 0.5 mg/2 mL suspension for nebulization 0.5 mg inhalation BID 30 Days Qty: 120 11RF azelastine-fluticasone [Dymista] 137-50 mcg/spray spray,non-aerosol 1 spray intranasal BID 30 Days Qty: 23 11RF Rx Instructions: administer into each nostril Interventions: ED Discharge Assessment Last Done: 01/24/25 15:41 Discharge Date/Time: 01/24/25 15:42 Print Language: Belarusian
[2025-01-24 14:00] LABS: IDNOW Serial# 08D9AD1C; Influenza B2 Negative (Negative)
[2025-01-24 14:01] LABS: COVID-19 Test Negative (Negative); IDNOW Serial# 6674DD1D
[2025-01-24 15:41] VITALS: BP 121/65; PULSE 80; RESP 18; TEMP 36.6; O2SAT 96
--- OUTSIDE RECORDS SUMMARY | 2025-01-24 19:50 | XMS_ITS | Encounter Summary ---
Author Organization [facility] spital Address [address] [place] [address] Phone Care Team Providers Care Munitions Handler Name Role Phone [facility] Primary Care Provider [phone]- [phone] [place] Dye Unavailable Encounter Details Date Type Department Care Team (Late st Contact Info) Description 01/25/2024 Orders Only [facility] [address] [place] [phone] Tran Payan MD [address] [place] [address] Bronchiolitis (Primary Dx) Social History Tobacco Use [...] Description 02/07/2025 11:30 AM EST Office Visit [facility] [address] [place] [phone] Tran Payan MD [address] [place] [address] 05/09/2025 11:30 AM EST Office Visit [facility] [address] [place] [phone] Tran Payan MD [address] [place] [address] Scheduled Orders Name Type Priority Associated Diagnoses Orde r Schedule Pulmonary Function Test (PFT) PFT Routine Bronchiolitis Expected: 01/26/2024, Expires: 01/24/2025 documented as of this encounter Visit Diagnoses Diagnosis Bronchiolitis- Primary Acute bronchiolitis due to other infectious organisms documented in this encounter Care Teams Munitions Handler Relationship Specialty Start Date End [facility] [address] [place] [id number] PCP - General 07/23/23 [place] Dye [address] [place] [id number] PCP - Insurance PCP 04/19/22 documented as of this encounter
--- OUTSIDE RECORDS SUMMARY | 2025-01-24 19:50 | XMS_ITS | Clinical Summary ---
Author Organization [facility] Address [address] [place] [address] Phone Care Team Providers Care Melt Supervisor Name Role Phone Jignesh Hale MD Primary Care Provider [phone] Allergies Active Allergy Reactions Criticality Noted Date [...] Seasonal allergies 03/19/2023 Respiratory distress syndrome in ([facility]/ C V28) 03/19/2023 Overview (02/11/2024): Added by [facility] Obesity (BMI 30-39.9) 03/19/2023 Shortened [place] interval 03/19/2023 Overweight (BMI 25.0-29.9) 07/20/2018 Vitamin D insufficiency 07/20/2018 Allergic rhinitis 06/29/2018 Overview (02/11/2024): Dr. Danny Molina-[facility]; local Dr. Zamora-[place] Bronchiolitis obliterans ([facility] V24, [facility] V 28) 06/29/2018 Overview (02/11/2024): Followed by [facility], Drs. Burton & Thaddeus; 09/2016 S/p lung biopsy -Bronchiolitis obliterans Esophagitis 06/29/2018 Overview (02/11/2024): Follows with GI Added by [facility] Added by [facility] Iatrogenic adrenal insufficiency ([facility] V24) 0 06/29/2018 Strabismus 06/29/2018 Severe persistent asthma ([facility] V28) 9 Overview (02/11/2024): 08/2017 [facility]- Dr. Wells; local-Dr. Suarez; no intubation Added by [facility] Immunizations Immunization Administration Dates Next Due DTaP (Infanrix) 6wks to less than 7yo ,12/03/1998,1997,1997,1997 [id number] (Pentacel) 2mo to less than 5yo 05/27/1998,1997,1997,1997 [...] 06/29/2018 DX:Allergic rh initis; COMMENT: [facility]. [facility] (gastroesophageal reflu x disease) 06/29/2018 DX:GERD (gastroesophageal re flux disease) Asthma, severe 06/29/2018 DX:Asthma, sever e; COMMENT: 08/2017 [facility]- Dr. Wells; local-Dr. Suarez; no intubation Bronchiolitis obliterans ([facility] S/HCC V24, [facility] V28) 06/29/2018 DX:Bronchiolitis obliterans (HCC); COMMENT: Followed by [facility]', Drs. Burton & Thaddeus; 09/2016 S/p lung biopsy -Bronchiolitis obliterans Iatrogenic adrenal insuffici ency ([facility]/HCC V24) 06/29/2018 DX:Iatrogenic adrenal insuff [...] to 49 Years) (2 of 2 - PPSV23, PCV20, or PCV21) 2003 02/26/2000 HIV Screening 03/01/2022 Hepatitis C Screening 03/01/2022 Social Influencers of Health Screening 03/01/2022 Cholesterol Screening (Lipid Panel) 12/28/2023 12/27/2018 Depression Screening 03/29/2024 COVID-19 Vaccine ( season) 2024 Influenza Vaccine (#1) 2024 0, 01/01/2019, 12/22/2017, Additional history exists DTaP,Tdap,and Td Vaccines (9 - Td or Tdap) 09/01/2027 08/31/2017, 04/30/2016, 01/21/2009, Additional history exists RSV Immunization Adult Patients (1 - 1-dose 75+ series) 02/23/2072 HIB Vaccines Completed 05/27/1998, 08/28, 1997, Additional [...] patient's age to complete this topic Insurance [facility] [place] [address] Care Teams Melt Supervisor Relationship Specialty Start Date End Date Jignesh Hale MD [address] [place] [address] PCP - General 10/23/22
--- OUTSIDE RECORDS SUMMARY | 2025-01-24 19:50 | XMS_ITS | Encounter Summary ---
Author Organization [facility] Address [address] [place] [address] Phone Care Team Providers Care Pool Nurse Name Role Phone [facility] Primary Care Provider [phone] [place] Dye Unavailable Encounter Details Date Type Department Care Team (Late st Contact Info) Description 01/03/2024 Orders Only [facility] [address] [place] [phone] Tran Payan MD [address] [place] [address] Severe persistent asthma without complication (Primary Dx) [...] Description 02/07/2025 11:30 AM EST Office Visit [facility] [address] [place] [phone] Tran Payan MD [address] [place], [place] [phone] 05/09/2025 11:30 AM EST Office Visit [facility] [address] [place] [phone] Tran Payan MD [address] [place] [address] documented as of this encounter Visit Diagnoses Diagnosis Severe persistent asthma without complication- Primary documented in this encounter Care Teams Pool Nurse Relationship Specialty Start Date End Date [facility] [address] [place] [id number] PCP - General 07/23/23 [place] Dye [address] [place] [address] PCP - Insurance PCP 04/19/22 documented as of this encounter
--- OUTSIDE RECORDS SUMMARY | 2025-01-24 19:50 | XMS_ITS | Clinical Summary ---
Author Organization [facility] Address [address] [place] [address] Phone Care Team Providers Care Call Center Operations Manager Name Role Phone [facility] Primary Care Provider [phone] [place] Dye Unavailable Allergies No known active [...] Department Care Team Description 11/13/2024 Results Follow-Up [facility] [address] [place] [phone] Renetta Loaiza MD Immunoglobulin E, CBC and differential 11/10/2024 4:15 PM EDT Lab [facility] [address] [place] [phone] Severe persistent asthma with acute exacerbation 11/10/2024 3:15 PM EDT - 11/10/2024 11:59 PM EDT Hospital Encounter [facility] [address] [place] [phone] Severe persistent asthma with acute exacerbation; Shortness of breath; Unspecified asthma, uncomplicated Discharge Disposition: Home 11/10/2024 2:30 PM EDT Office Visit [facility] [address] [place] [phone] Renetta Loaiza MD Severe persistent asthma with acute exacerbation (Primary Dx); Bronchiolitis; Abnormal lung function test 11/10/2024 Travel from Last 3 Months Immunizations Immunization Administration [...] Description 02/07/2025 11:30 AM EST Office Visit [facility] [address] [place] [phone] Tran Payan MD [address] [place] [phone] 05/09/2025 11:30 AM EST Office Visit [facility] [address] [place] [phone] Tran Payan MD [address] [place] [address] Health Maintenance Due Date Last Done Comments Chlamydia and Gonorrhea Screening 1997 HIV Screening 1997 Hepatitis B Vaccines (3 [...] Completed 03/18/2015, 04/18/2014, 03/14/2014 Meningococcal Vaccine Completed 03/18/2015, 009 Meningococcal B Vaccine Aged Out No l [...] LAB HEMATOLOGY METHOD 11/10/2024 4:29 PM EDT [facility] RBC 5.80(H) 4.59 - 5.58 M cells/uL LAB HEMATOLOGY METHOD 11/10/2024 4:29 PM EDT [facility] Hemoglobin 15.0 13.5 - 17.0 g/dL LAB HEMATOLOGY METHOD 11/10/2024 4:29 PM EDT [facility] Hematocrit 47.1 40.6 - 50.2 % LAB HEMATOLOGY METHOD 11/10/2024 4:29 PM EDT [facility] MCV 81.2(L) 82.8 - 92.0 fL LAB HEMATOLOGY METHOD 11/10/2024 4:29 PM EDT [facility] MCH 25.9(L) 27.3 - 31.2 pg LAB HEMATOLOGY METHOD 11/10/2024 4:29 PM EDT [facility] MCHC 31.8(L) 32.1 - 34.8 g/dL LAB HEMATOLOGY METHOD 11/10/2024 4:29 PM EDT [facility] RDW 14.2(H) 11.9 - 13.5 % LAB HEMATOLOGY METHOD 11/10/2024 4:29 PM EDT [facility] Platelets 335 150 - 450 K cells/uL LAB HEMATOLOGY METHOD 11/10/2024 4:29 PM EDT [facility] MPV 9.4(L) 9.6 - 11.8 fL LAB HEMATOLOGY METHOD 11/10/2024 4:29 PM EDT [facility] Nucleated RBCs % 0.0 % LAB HEMATOLOGY METHOD 11/10/2024 4:29 PM EDT [facility] Absolute Nucleated RBC Count 0.00 K cells/uL LAB HEMATOLOGY METHOD 11/10/2024 4:29 PM EDT [facility] Neutrophils and Bands % 55.8 43.5 - 69.0 % LAB HEMATOLOGY METHOD 11/10/2024 4:29 PM EDT [facility] Lymphocytes % 32.9 20.0 - 42.9 % LAB HEMATOLOGY METHOD 11/10/2024 4:29 PM EDT [facility] Monocytes % 5.4(L) 6.5 - 11.5 % LAB HEMATOLOGY METHOD 11/10/2024 4:29 PM EDT [facility] Eosinophils % 5.1(H) 0.7 - 4.6 % LAB HEMATOLOGY METHOD 11/10/2024 4:29 PM EDT [facility] Basophils % 0.3 0.3 - 1.0 % LAB HEMATOLOGY METHOD 11/10/2024 4:29 PM EDT [facility] Immature Granulocytes % 0.5 0.2 - 0.5 % LAB HEMATOLOGY METHOD 11/10/2024 4:29 PM EDT [facility] Absolute Neutrophil Count 6.64(H) 2.07 - 6.00 K cells/uL LAB HEMATOLOGY METHOD 11/10/2024 4:29 PM EDT [facility] Absolute Lymphocyte Count 3.91(H) 1.39 - 2.72 K cells/uL LAB HEMATOLOGY METHOD 11/10/2024 4:29 PM EDT [facility] Absolute Monocyte Count 0.64 0.38 - 0.83 K cells/uL LAB HEMATOLOGY METHOD 11/10/2024 4:29 PM EDT [facility] Absolute Eosinophil Count 0.61(H) 0.04 - 0.31 K cells/uL LAB HEMATOLOGY METHOD 11/10/2024 4:29 PM EDT [facility] Absolute Basophil Count 0.04 0.02 - 0.06 K cells/uL LAB HEMATOLOGY METHOD 11/10/2024 4:29 PM EDT [facility] Absolute Immature Granulocyte Count 0.06(H) 0.01 - 0.04 K cells/uL LAB HEMATOLOGY METHOD 11/10/2024 4:29 PM EDT [facility] Blood Venous structure / Unknown Venipuncture / Unknown 11/10/2024 4:14 PM EDT 11/10/2024 4:19 PM EDT us Judith Mayorga MD LAB BLOOD ORDERABLES Final Res ult [facility] [address] [place] [address], * (ABNORMAL) Immunoglobulin E (11/10/2024 4:14 PM EDT) IgE 316(H) <=200 unit/mL 11/10/2024 5:06 PM EDT [facility] Blood Venous structure / Unknown Venipuncture / Unknown 11/10/2024 4:14 PM EDT 11/10/2024 4:19 PM EDT us Judith Mayorga MD LAB BLOOD ORDERABLES Final Res ult [facility] [address] [place] [address], [place] [phone] * Pulmonary Function Test (PFT) (11/10/2024 3:39 [...] testing 08/04/23, FEV1 and FVC are unchanged. [facility] PATIENT Age 29 years [facility] PAT[facility] Height 170 cm [facility] PATIENT Weight 90.2 kg [facility] Technical Notes Patient arrived to the lab post Ventolin (12:30pm). Testing performed at 3:30pm. [facility] FVC Actual PostBD 3.18 L FO [facility] FVC PostBD of Predicted 70 % [facility] FVC PostZScore -2.24 [facility] FEV1 Actual PostBD 2.15 L [facility] FEV1 PostBD of Predicted 56 % [facility] FEV1 PostZScore -3.19 [facility]OUN [facility] FEV1/FVC Actual PostBD 68 % [facility] FEV1/FVC PostBD of Predicted 80 % [facility] [id number] PostZScore -2.44 [facility] [id number] Actual PostBD 1.42 L/s [facility] [id number] PostBD of Predicted 34 % [facility] [...] RADIOLOGY SYSTEM OXIMETRY SaO2&RA1 97 % [facility] 11/10/2024 3:25 PM EDT us Judith Mayorga MD PFT ORDERABLES Final Result [facility] [address] [place] [address], from Last 3 Months Insurance ACO ACO Care Teams Call Center Operations Manager Relationship Specialty Start Date End Date [facility] [address] [place] [phone] PCP - General 07/23/23 [place] Dye [address] [place] [address] PCP - Insurance PCP 04/19/22
--- OUTSIDE RECORDS SUMMARY | 2025-01-24 19:50 | XMS_ITS | Encounter Summary ---
Author Organization [facility] Address [address] [place] [address] Phone Care Team Providers Care Dairy Equipment Installer Name Role Phone [facility] Primary Care Provider +1- [phone] [place] Dye Unavailable Encounter Details Date Type Department Care Team (Late st Contact Info) Description 09/14/2023 Orders Only [facility] [address] [place] [phone] Tran Payan MD [address] [place] [address] Severe persistent asthma with acute exacerbation (Primary [...] Description 02/07/2025 11:30 AM EST Office Visit [facility] [address] [place] [phone] Tran Payan MD [address] [place] [address] 05/09/2025 11:30 AM EST Office Visit [facility] [address] [place] [phone] Tran Payan MD [address] [place] [address] documented as of this encounter Visit Diagnoses Diagnosis Severe persistent asthma with acute exacerbation- Primary documented in this encounter Care Teams Dairy Equipment Installer Relationship Specialty Start Date End [facility] [address] [place] [id number] PCP - General 07/23/23 Mod[place] Dye [address] [place] [phone] PCP - Insurance PCP 04/19/22 documented as of this encounter
== END 2025-01-24 15:42 | disposition home or self-care (01) ==
PROVIDERS: Emergency Provider Student in an Organized Health Care Education/Training Program
DX: R05.1 Acute cough (principal); J06.9 Acute upper respiratory infection, unspecified; Z03.818 Encounter for observation for suspected exposure to other biological agents ruled out
CPT/HCPCS: 71046; 87502; 87635; 99282; 99283

== ENCOUNTER → 2025-01-24 12:58 | Outpatient (BNV) | payer OTHER, SELFPAY | PROVIDERS: Visit Provider Radiology Diagnostic Radiology | DX: R05.9 Cough, unspecified (principal) | CPT/HCPCS: 71046 ==